=== PATIENT | female | born 1985 | race Caucasian/White ===

== ENCOUNTER 2016-07-15 12:21 | Outpatient (CLI) | payer OTHER ==
--- NOTE | 2016-07-15 13:50 | Non Stress Test Report ---
Non Stress Test Datetime Report Generated by CPN: 07/15/2016 13:50 DEMOGRAPHIC Test Number: 1 EGA NST: 39.1 INDICATION Indication for Study: Decreased Movement MONITORING Monitor Explained: Monitor Explained; Test Explained; Patient Verbalized Understanding Time on Monitor: 07/15/2016 12:54 Time off Monitor: 07/15/2016 13:40 NST Duration: 46 NST INTERVENTIONS NST Interventions: PO Hydration Physician Notified NST: Dr. Chen BABY A: [id number] BABY A Movement : Present Contraction Frequency : 3-8 FHR Baseline : 140 Accelerations : 15X15 Decelerations : None Variability : Moderate 6-25bpm NST Review: Meets Criteria for Reactive NST NST Review and Verified By : Iris Stokes RNC NST Results: Reactive NST REPORT Report Trigger: Send Report
[2016-07-15 13:55] LABS: APPEARANCE,URINE CLOUDY; BILIRUBIN,URINE NEGATIVE (NEGATIVE); GLUCOSE, URINE NEGATIVE (NEGATIVE); KETONES,URINE NEGATIVE (NEGATIVE); LEUKOCYTE ESTERASE,URINE LARGE (NEGATIVE); NITRITE,URINE NEGATIVE (NEGATIVE); PROTEIN,URINE NEGATIVE (NEGATIVE); URINE SPECIFIC GRAVITY 1.009; UROBILINOGEN,URINE NEGATIVE mg/dL (<2.0)
[2016-07-15 14:10] LABS: URINE BARBITURATES SCREEN NEGATIVE; URINE METHADONE SCREEN NEGATIVE; URINE OPIATES LOW NEGATIVE; URINE PHENCYCLIDINE SCREEN NEGATIVE
== END 2016-07-15 13:48 | disposition home or self-care (01) ==
LOC: LC 12:21
PROVIDERS: ATTEND Obstetrics & Gynecology
PROC: 4A1HXCZ Monitoring of Products of Conception, Cardiac Rate, External Approach (ICD-10-PCS; principal; 2016-07-15)
DX: O36.8130 Decreased fetal movements, third trimester, not applicable or unspecified (principal); Z3A.39 39 weeks gestation of pregnancy
CPT/HCPCS: 59025; 80307; 81005

== ENCOUNTER 2016-07-23 11:59 | Outpatient (CLI) | payer OTHER | END 2016-07-23 13:12 | disposition home or self-care (01) | LOC: LC 11:59 | PROVIDERS: ATTEND Obstetrics & Gynecology | PROC: 4A1HXCZ Monitoring of Products of Conception, Cardiac Rate, External Approach (ICD-10-PCS; principal; 2016-07-23) | DX: O48.0 Post-term pregnancy (principal); Z3A.40 40 weeks gestation of pregnancy | CPT/HCPCS: 59025 ==

== ENCOUNTER 2016-07-27 05:32 | Inpatient (IN) | payer OTHER ==
--- NOTE | 2016-07-27 05:34 | Non Stress Test Report ---
Non Stress Test Datetime Report Generated by CPN: 07/27/2016 05:33 DEMOGRAPHIC Test Number: 2 EGA NST: 40.2 INDICATION Indication for Study: Ordered by Provider MONITORING Monitor Explained: Monitor Explained; Test Explained; Patient Verbalized Understanding Time on Monitor: 07/23/2016 12:07 Time off Monitor: 07/23/2016 13:07 NST Duration: 60 NST INTERVENTIONS NST Interventions: Reposition Patient Physician Notified NST: C. Montgomery, CNM BABY A: [id number] BABY A Movement : Present Contraction Frequency : Irregular FHR Baseline : 155 Accelerations : 15X15 Decelerations : None Variability : Moderate 6-25bpm NST Review: Meets Criteria for Reactive NST NST Review and Verified By : COURTNEY JAMES RN NSVinayak Results: Reactive NST REPORT Report Trigger: Send Report
[2016-07-27] MEDS ORDERED: RINGERS SOLUTION,LACTATED 1,000 ML IV PRN (06:20)
[2016-07-27 06:43] LABS: APPEARANCE,URINE SLIGHTLY-CLOUDY; BILIRUBIN,URINE NEGATIVE (NEGATIVE); GLUCOSE, URINE NEGATIVE (NEGATIVE); KETONES,URINE NEGATIVE (NEGATIVE); LEUKOCYTE ESTERASE,URINE MODERATE (NEGATIVE); NITRITE,URINE NEGATIVE (NEGATIVE); PROTEIN,URINE NEGATIVE (NEGATIVE); URINE SPECIFIC GRAVITY 1.006; UROBILINOGEN,URINE NEGATIVE mg/dL (<2.0)
[2016-07-27] MEDS ORDERED: MISOPROSTOL 0.2 MG TABLET ONE ×2 (06:58→12:07)
[2016-07-27] MEDS ORDERED: OXYTOCIN/NORMAL SALINE 20 UNIT/1,000 ML RTUINJ ONE (06:58)
[2016-07-27] MEDS ORDERED: LIDOCAINE 1% INJ-PF (10 MG/ML) 30 ML SDV ONE (06:58)
[2016-07-27 06:59] LABS: URINE BARBITURATES SCREEN NEGATIVE; URINE METHADONE SCREEN NEGATIVE; URINE OPIATES LOW NEGATIVE; URINE PHENCYCLIDINE SCREEN NEGATIVE
[2016-07-27] MEDS ORDERED: RINGERS SOLUTION,LACTATED 500 ML IV ONE (07:00)
[2016-07-27 07:12] LABS: ABSOLUTE LYMPHOCYTES (AUTO) 1.8 10^3/uL (0.5-4.7); ABSOLUTE MONOCYTES (AUTO) 0.7 10^3/uL (0.1-1.4); ABSOLUTE NEUT (AUTO) 8.7 10^3/uL (1.7-8.2); BASOPHILS % (AUTO) 0.2 % (0-2); HEMATOCRIT 30.1 % (36.0-47.0); HEMOGLOBIN 9.6 g/dL (12.0-15.5); HGB HCT DIFFERENCE -1.3; MEAN CORPUSCULAR HEMOGLOBIN 22.6 pg (27.0-33.4); MEAN CORPUSCULAR HGB CONC 31.9 g/dL (32.0-36.0); MEAN CORPUSCULAR VOLUME 71 fl (80-97); MONOCYTES % (AUTO) 5.9 % (3-13); RED BLOOD COUNT 4.24 10^6/uL (3.72-5.28); RED CELL DISTRIBUTION WIDTH 16.7 % (11.5-14.0); SEGMENTED NEUTROPHILS % (AUTO) 77.9 % (42-78); WHITE BLOOD COUNT 11.2 10^3/uL (4.0-10.5)
[2016-07-27] MEDS ORDERED: EPHEDRINE SULFATE INJ 50 MG/1 ML AMPULE ONE (07:22)
[2016-07-27] MEDS ORDERED: FENTANYL/BUPIVACAINE/NS/PF 200 MCG/100 ML RTUINJ EPI ONE (07:22)
[2016-07-27] MEDS ORDERED: BUPIVACAINE HCL 0.25 % INJ/PF (2.5 MG/1 ML) 30 ML VIAL ONE (07:22)
--- NOTE | 2016-07-27 08:01 | L&D Flow Sheet ---
LD Flowsheet Datetime Report Generated by CPN: 07/27/2016 08:00 Datetime: 07/27/2016 07:52 NBP Sys/Pauline/Mean (mmHg): 121 (QS system process) : 72 (QS system process) : 91 (QS system process) Pulse: 83 (QS system process) LaborFlag: Labor (QS system process) Datetime: 07/27/2016 07:50 NBP Sys/Pauline/Mean (mmHg): 118 (QS system process) : 75 (QS system process) : 74 (QS system process) : 91 (QS system process) : 90 (QS system process) Pulse: 93 (QS system process) Pulse: 81 (QS system process) LaborFlag: Labor (QS system process) Datetime: 07/27/2016 07:49 Dilatation (cm): 9.0 (Anjelica Davalos RN) Effacement (%): 100 (Anjelica Davalos RN) Exam by: Cecille Turner RN (Anjelica Davalos RN) Membrane Status: Bulging (Anjelica Davalos RN) Datetime: 07/27/2016 07:48 NBP Sys/Pauline/Mean (mmHg): 116 (QS system process) NBP Sys/Pauline/Mean (mmHg): 117 (QS system process) : 73 (QS system process) : 89 (QS system process) : 91 (QS system process) Pulse: 88 (QS system process) I/O Interventions: [place] Cath Inserted (Anjelica Davalos RN) Patient Care Comments: Clear urine draining (Anjelica Davalos RN) LaborFlag: Labor (QS system process) Datetime: 07/27/2016 07:47 NBP Sys/Pauline/Mean (mmHg): 122 (QS system process) : 71 (QS system process) : 93 (QS system process) Pulse: 83 (QS system process) Monitor Interventions for UA: [place] Adjusted (Anjelica Vitrano RN) Anesthesia Plans: Epidural (Anjelica Vitrano RN) Epidural Procedure Other: Pump Started (Anjelica Vitrano RN) LaborFlag: Labor (QS system process) Datetime: 07/27/2016 07:46 NBP Sys/Pauline/Mean (mmHg): 121 (QS system process) : 73 (QS system process) : 92 (QS system process) Pulse: 83 (QS system process) LaborFlag: Labor (QS system process) Datetime: 07/27/2016 07:45 NBP Sys/Pauline/Mean (mmHg): 127 (QS system process) : 77 (QS system process) : 97 (QS system process) Pulse: 85 (QS system process) Anesthesia Level Check: T10- Umbilicus (Anjelica Vitrano, RN) LaborFlag: Labor (QS system process) Datetime: 07/27/2016 07:44 Patient Position/Activity: Right Tilt; Low Fowlers (Anjelica Vitrano, RN) Datetime: 07/27/2016 07:42 NBP Sys/Pauline/Mean (mmHg): 138 (QS system process) : 89 (QS system process) : 109 (QS system process) Pulse: 82 (QS system process) LaborFlag: Labor (QS system process) Datetime: 07/27/2016 07:41 NBP Sys/Pauline/Mean (mmHg): 138 (QS system process) : 90 (QS system process) : 109 (QS system process) Pulse: 93 (QS system process) Anesthesia Plans: Epidural (Anjelica Vitrano, RN) Epidural Procedure: Loading Dose (Anjelica Vitrano, RN) LaborFlag: Labor (QS system process) Datetime: 07/27/2016 07:40 NBP Sys/Pauline/Mean (mmHg): 137 (QS system process) : 90 (QS system process) : 109 (QS system process) Pulse: 96 (QS system process) Anesthesia Plans: Epidural (Anjelica Vitrano, RN) Epidural Procedure: Cath Placed (Anjelica Vitrano, RN) Epidural Procedure: Test Dose (Anjelica Vitrano, RN) LaborFlag: Labor (QS system process) Datetime: 07/27/2016 07:31 Comments: Broken tracing d/t pt position for epidural; RN remains at bedside continuously adjusting US throughout procedure (Anjelica Vitrano, RN) Datetime: 07/27/2016 07:28 Procedure Verify: Correct Patient Identity; Correct Side and Site are Marked; Accurate Procedure Consent Form; Agreement on Procedure to be Done; Correct Patient Position; Relevant Images and Results are Properly Labeled and Displayed; Addressed Need to Administer Antibiotics or Fluids for Irrigation; Safety Precautions Based on Patient History or Medication Use (Anjelica Davalos RN) Anesthesia Plans: Epidural (Anjelica KENYA Davalos) Epidural Positioning: Sitting (Anjelica Davalos RN) Anesthesia Comments: Dr. Ferreira at bedside for epidural (Anjelica Vitrano, RN) Datetime: 07/27/2016 07:26 Dilatation (cm): 8.0 (Anjelica Davalos RN) Exam by: Cecille Turner RN (Anjelica Davalos RN) Membrane Status: Bulging (Anjelica KENYA Davalos) Datetime: 07/27/2016 07:25 Pushing: Urge to Push (Anjelica Anoop, RN) Datetime: 07/27/2016 07:14 Stage of : Labor (Diana Santos RN) Strip Reviewed by: Rakan Santos RN (Diana Santos RN) Communication: Report Given to @ Cecille Turner RN (Diana Santos RN) Notification Reason: Status Update; Status; Labor Status; Membrane Status; Uterine Activity; Pain; Lab/Diagnostic Study (Diana Santos RN) Datetime: 07/27/2016 07:13 Dilatation (cm): 7.5 (Diana Tom, RN) Effacement (%): 100 (Diana Jonesergrass, RN) Station: -1 (Diana Santos, RN) Exam by: Kalpesh Turner (Diana Santos, RN) Vaginal Exam Comments: bulging forebag noted, (Diana Santos, RN) Patient Care Comments: c/o increasing pressure (Diana Santos, RN) Datetime: 07/27/2016 07:07 Monitor Mode: External; Palpation (Crystal Tom, RN) Frequency (min): 4-6 (Crystal Tom, RN) Quality: Moderate to Strong (Crystal [place], RN) Duration (sec): 90-110 (Crystal [place], RN) Duration Criteria: Less than Two 120 Second Contractions (Crystal [place], RN) Resting Tone (Palpate): Relaxed (Crystal [place], RN) Monitor Mode: External US (Crystal Tom, RN) FHR Baseline Rate : 135 (Crystal [place], RN) Variability: Moderate 6-25 bpm (Crystal [place], RN) Accelerations: 15X15 (Crystal [place], RN) Patient Position/Activity: Left Extreme (Crystal [place], RN) Datetime: 07/27/2016 07:05 Pushing: Urge to Push (Crystal [place], RN) Datetime: 07/27/2016 07:04 NBP Sys/Pauline/Mean (mmHg): 124 (QS system process) : 78 (QS system process) : 96 (QS system process) Pulse: 93 (QS system process) IV/Blood Work: New IV Bag Hung (Crystal Tom, RN) LaborFlag: Labor (QS system process) Datetime: 07/27/2016 07:03 Communication: RN at Bedside (Crystal Tom, RN) Datetime: 07/27/2016 07:00 Procedures: Labs Drawn (Crystal [place], RN) Datetime: 07/27/2016 06:58 Monitor Mode: External; Palpation (Diana Santos, RN) Frequency (min): 5 (Diana [place]er[place], RN) Quality: Moderate to Strong (Crystal Tom, RN) Duration (sec): 90-120 (Crystal [place], RN) Duration Criteria: Less than Two 120 Second Contractions (Crystal [place], RN) Resting Tone (Palpate): Relaxed (Crystal [place], RN) Monitor Mode: External US (Diana Santos, RN) FHR Baseline Rate : 130 (Crystal [place], RN) Variability: Moderate 6-25 bpm (Crystal Tom, RN) Pain Relief Measures: Comfort Measures (Diana Santos, RN) Pain Coping: Requesting Pain Medication or Epidural; Crying (Diana Santos, RN) Patient Position/Activity: Left Lateral (Diana Santos RN) Comfort Measures: Family Support (Diana Santos RN) Patient Care Comments: Pt bolusing for epidural _ awaiting labs to be drawn. (Diana Santos RN) Patient Care Comments: Lab at bedside (Diana Santos RN) LaborFlag: Labor (QS system process) Datetime: 07/27/2016 06:54 Procedures: Consents Signed (Diana Santos RN) Datetime: 07/27/2016 06:50 Stage of : Labor (Diana Santos RN) Monitor Mode: External; Palpation (Diana Santos RN) Frequency (min): 2-4 (Diana Santos RN) Quality: Moderate to Strong (Diana Santos RN) Duration (sec): 70-120 (Diana Santos RN) Duration Criteria: Less than Two 120 Second Contractions (Diana Santos RN) Resting Tone (Palpate): Relaxed (Diana Santos RN) Monitor Mode: External US (Diana Santos RN) FHR Baseline Rate : 130 (Diana Santos RN) Variability: Moderate 6-25 bpm (Diana Santos RN) Patient Position/Activity: Left Lateral (Diana Santos RN) Provider Reviewed Strip: Yes (Diana Santos RN) Strip Reviewed by: Rakan Santos RN (Diana Santos RN) Communication: RN Reviewed Strip; Provider Orders Received (Diana Santos RN) Provider Notified (Name): Dr. Dsouza (Diana Santos RN) Notification Reason: Status Update; Status; Labor Status; Membrane Status; Uterine Activity; Pain (Diana Santos RN) Datetime: 07/27/2016 06:44 Dilatation (cm): 7.0 (Diana Santos RN) Effacement (%): 90 (Diana Santos RN) Station: -1 (Diana Santos RN) Exam by: Rakan Santos RN (Diana Santos RN) Membrane Status: Ruptured (Diana Santos RN) Membranes Ruptured Date/Time: 07/27/2016 06:44 (Diana Santos RN) Membranes Rupture Method: Spontaneous (Diana Santos RN) Amniotic Fluid Color: Clear (Diana Santos RN) Amniotic Fluid Amount: Small (Diana Santos RN) Amniotic Fluid Odor: Normal (Diana Santos RN) Vaginal Bleeding: Normal Show (Diana Santos RN) Cervix, Consistency: Soft (Diana Santos RN) Datetime: 07/27/2016 06:35 Monitor Mode: External; Palpation (Crystal Tom, RN) Frequency (min): 2-3 (Crystal Tom, RN) Quality: Moderate to Strong (Crystal Tom, RN) Duration (sec): 90-120 (Crystal [place], RN) Duration Criteria: Less than Two 120 Second Contractions (Crystal [place], RN) Resting Tone (Palpate): Relaxed (Crystal [place], RN) Monitor Mode: External US (Crystal Tom, RN) FHR Baseline Rate : 145 (Crystal [place], RN) Variability: Moderate 6-25 bpm (Crystal [place], RN) Accelerations: 15X15 (Crystal Tom, RN) Patient Position/Activity: Right Lateral (Crystal Tom, RN) Datetime: 07/27/2016 06:27 Dilatation (cm): 5.0 (Crystal Tom, RN) Effacement (%): 90 (Crystal [place], RN) Station: -2 (Crystal [place], RN) Exam by: Rakan Santos RN (Crystal [place], RN) Vaginal Bleeding: None (Crystal [place], RN) Cervix, Position: Midposition (Diana Santos RN) Datetime: 07/27/2016 06:26 IV/Blood Work: IV Started; IV Bolus Started; New IV Bag Hung (Diana Santos RN) Patient Care Comments: 18 G L FA (Diana Santos RN) Datetime: 07/27/2016 06:17 Stage of : OB Triage (Diana Santos RN) Strip Reviewed by: Rakan Santos RN (Diana Santos RN) Communication: RN Reviewed Strip; Provider Orders Received (Diana Santos RN) Provider Notified (Name): Lianna (Diana Santos RN) Notification Reason: Status Update; Status; Labor Status; Uterine Activity; Pain (Diana Santos RN) Communication Comments: Dr. Dsouza notified of VE and pt pain status, received orders to continue to observe pt as a labor check at this time. (Diana Santos RN) Datetime: 07/27/2016 06:11 Monitor Mode: External; Palpation (Crystal Tom, RN) Frequency (min): 3-4 (Crystal [place], RN) Quality: Moderate to Strong (Crystal Tom, RN) Duration (sec): 60-80 (Crystal Tom, RN) Duration Criteria: Less than Two 120 Second Contractions (Crystal Tom, RN) Resting Tone (Palpate): Relaxed (Crystal Tom, RN) Monitor Mode: External US (Crystal [place], RN) FHR Baseline Rate : 140 (Crystal [place], RN) Variability: Moderate 6-25 bpm (Crystal [place], RN) Accelerations: 15X15 (Crystal [place], RN) Patient Position/Activity: Right Lateral (Crystal Tom, RN) Datetime: 07/27/2016 05:58 Monitor Interventions for FHR: Ultrasound Adjusted (Crystal Tom, RN) Comments: Pt turned more on her side from back. (Crystal Tmo, RN) Datetime: 07/27/2016 05:50 NBP Sys/Pauline/Mean (mmHg): 129 (QS system process) : 83 (QS system process) : 100 (QS system process) Pulse: 78 (QS system process) LaborFlag: Labor (QS system process) Datetime: 07/27/2016 05:49 Monitor Mode: External; Palpation (Crystal [place], RN) Frequency (min): 6 (Crystal [place], RN) Quality: Moderate (Crystal Tom, RN) Duration (sec): 120 (Crystal Tom, RN) Duration Criteria: Less than Two 120 Second Contractions (Crystal Tom, RN) Resting Tone (Palpate): Relaxed (Crystal Tom, RN) Monitor Mode: External US (Crystal [place], RN) FHR Baseline Rate : 135 (Crystal Tom, RN) Variability: Moderate 6-25 bpm (Crystal Tom, RN) Patient Position/Activity: Left Tilt (Crystal [place], RN) Datetime: 07/27/2016 05:37 Monitor Mode: External US (Diana Santos RN) Pain Scale: 4 (Diana Santos RN) Pain Presence: Intermittent (Diana Santos RN) Pain Type: Contraction (Diana Santos RN) Pain Location: Abdomen (Diana Santos RN) Pain Goal: 1 (Diana Santos RN) Pain Relief Measures: Comfort Measures (Diana Santos RN) Pain Coping: Requesting Pain Medication or Epidural; Crying (Diana Santos RN) Dilatation (cm): 5.0 (Diana Santos RN) Effacement (%): 90 (Diana Santos RN) Station: -2 (Diana Santos RN) Membrane Status: Intact (Diana Santos RN) Vaginal Bleeding: None (Diana Santos RN) Dilatation (cm): 5 or greater cms (Diana Santos RN) Effacement: >80_ effaced (Diana Santos RN) Station: minus 2 (Diana Santos RN) Consistency: Soft (Diana Santos RN) Position: Midposition (Diana Sanots RN) Total Solitario's Score: 10 (QS system process) : 9-14 = Usually no failure for induction (QS system process) Level of Consciousness: Fully Conscious (Diana Santos RN) DTR's/Clonus: DTRs 1+; No Clonus (Diana Santos RN) Headache: Denies (Diana Santos RN) Breath Sounds, Left: Clear and Equal (Diana Santos RN) Breath Sounds, Right: Clear and Equal (Diana Santos RN) Nausea/Vomiting: Denies (Diana Santos RN) RUQ Epigastric Pain: Denies (Diana Santos RN) Instructional Method: Verbal; Patient Instructed; Family/Support Person Instructed; Verbalized Understanding (Diana Santos RN) Plan of Care: Plan of Care Discussed (Diana Santos RN) Unit Routine: [place] to Room (Diana Santos RN) Pain Management: Epidural; PRN Medications; Pain Scale/Goals; Comfort Measures (Diana Santos RN) LaborFlag: Labor (QS system process)
[2016-07-27] MEDS ORDERED: OXYTOCIN/NORMAL SALINE 1,000 ML IV PRN ×2 (09:51→11:51)
--- NOTE | 2016-07-27 10:01 | L&D Flow Sheet ---
LD Flowsheet Datetime Report Generated by CPN: 07/27/2016 10:00 Datetime: 07/27/2016 09:52 NBP Sys/Pauline/Mean (mmHg): 144 (QS system process) : 84 (QS system process) : 102 (QS system process) Pulse: 89 (QS system process) LaborFlag: Labor (QS system process) Datetime: 07/27/2016 09:45 Monitor Mode: External; Palpation (Azra Camp, RNC) Frequency (min): 1.5-3 (Azra Camp, RNC) Quality: Mild/Moderate (Azra Camp, RNC) Duration (sec): 40-60 (Azra Camp, RNC) Duration Criteria: Less than Two 120 Second Contractions (Azra Camp, RNC) Pattern: Normal: <= 5 Contractions in 10 Minutes (Azra Camp, RNC) Resting Tone (Palpate): Relaxed (Azra Camp, RNC) Monitor Mode: External US; Auscultation (Azra Camp, RNC) FHR Baseline Rate : 130 (Azra Camp, RNC) FHR Baseline Changes: No Baseline Change (Azra Camp, RNC) Variability: Moderate 6-25 bpm (Azra Camp, RNC) Accelerations: 15X15 (Azra Camp, RNC) Decelerations: None (Azra Camp, RNC) Datetime: 07/27/2016 09:38 NBP Sys/Pauline/Mean (mmHg): 127 (QS system process) : 72 (QS system process) : 95 (QS system process) Pulse: 75 (QS system process) Respirations: 17 (Azra Camp, RNC) LaborFlag: Labor (QS system process) Datetime: 07/27/2016 09:30 Monitor Mode: External; Palpation (Azra Camp, RNC) Frequency (min): 2-3 (Azra Camp, RNC) Quality: Mild/Moderate (Azra Camp, RNC) Duration (sec): 40-70 (Azra Camp, RNC) Pattern: Normal: <= 5 Contractions in 10 Minutes (Azra Camp, RNC) Resting Tone (Palpate): Relaxed (Azra Camp, RNC) Monitor Mode: External US; Auscultation (Azra Camp, RNC) FHR Baseline Rate : 130 (Azra Camp, RNC) FHR Baseline Changes: No Baseline Change (Azra Camp, RNC) Variability: Moderate 6-25 bpm (Azra Camp, RNC) Accelerations: 15X15 (Azra Camp, RNC) Decelerations: Variable (Azra Camp, RNC) Datetime: 07/27/2016 09:26 Monitor Mode: Palpation (Azra Camp, RNC) Monitor Interventions for UA: [place] Adjusted (Azra Camp, RNC) Quality: Mild/Moderate (Azra Camp, RNC) Resting Tone (Palpate): Relaxed (Azra Camp, RNC) Datetime: 07/27/2016 09:23 NBP Sys/Pauline/Mean (mmHg): 128 (QS system process) : 61 (QS system process) : 88 (QS system process) Pulse: 85 (QS system process) Respirations: 16 (Azra Camp, RNC) LaborFlag: Labor (QS system process) Datetime: 07/27/2016 09:20 Patient Position/Activity: Peanut Ball; Right Extreme (Azra Camp, RNC) Communication: RN at Bedside; RN Reviewed Strip (Azra Camp, RNC) Datetime: 07/27/2016 09:15 Monitor Mode: External; Palpation (Azra Camp, RNC) Frequency (min): 3-4 (Azra Camp, RNC) Quality: Mild/Moderate (Azra Camp, RNC) Duration (sec): 50-60 (Azra Camp, RNC) Duration Criteria: Less than Two 120 Second Contractions (Azra Camp, RNC) Pattern: Normal: <= 5 Contractions in 10 Minutes (Azra Camp, RNC) Resting Tone (Palpate): Relaxed (Azra Camp, RNC) Monitor Mode: External US; Auscultation (Azra Camp, RNC) FHR Baseline Rate : 130 (Azra Camp, RNC) FHR Baseline Changes: No Baseline Change (Azra Camp, RNC) Variability: Minimal - Undetectable to <=5 bpm (Azra Camp, RNC) Decelerations: Early (Azra Camp, RNC) Datetime: 07/27/2016 09:07 NBP Sys/Pauline/Mean (mmHg): 117 (QS system process) : 60 (QS system process) : 81 (QS system process) Pulse: 71 (QS system process) Respirations: 17 (Azra Camp, RNC) LaborFlag: Labor (QS system process) Datetime: 07/27/2016 09:00 Monitor Mode: External; Palpation (Azra Camp, RNC) Frequency (min): 1-3 (Azra Camp, RNC) Quality: Mild/Moderate (Azra Camp, RNC) Duration (sec): 60-110 (Azra Camp, RNC) Duration Criteria: Less than Two 120 Second Contractions (Azra Camp, RNC) Pattern: Normal: <= 5 Contractions in 10 Minutes (Azra Camp, RNC) Resting Tone (Palpate): Relaxed (Azra Camp, RNC) Monitor Mode: External US; Auscultation (Azra Camp, RNC) FHR Baseline Rate : 135 (Azra Camp, RNC) FHR Baseline Changes: No Baseline Change (Azra Camp, RNC) Variability: Minimal - Undetectable to <=5 bpm (Azra Camp, RNC) Accelerations: None (Azra Camp, RNC) Decelerations: None (Azra Camp, RNC) Pain Scale: 1 (Azra Camp, RNC) Pain Presence: Intermittent (Azra Camp, RNC) Pain Type: Pressure (Azra Camp, RNC) Pain Location: Perineum (Azra Camp, RNC) Pain Relief Measures: Epidural Given (Azra Camp, RNC) LaborFlag: Labor (QS system process) Datetime: 07/27/2016 08:54 NBP Sys/Pauline/Mean (mmHg): 119 (QS system process) : 58 (QS system process) : 81 (QS system process) Pulse: 69 (QS system process) Respirations: 16 (Azra Camp, RNC) LaborFlag: Labor (QS system process) Datetime: 07/27/2016 08:45 Monitor Mode: External; Palpation (Azra Camp, RNC) Monitor Interventions for UA: [place] Adjusted (Azra Camp, RNC) Frequency (min): 3-4 (Azra Camp, RNC) Quality: Moderate (Azra Camp, RNC) Duration (sec): 50-70 (Azra Camp, RNC) Pattern: Normal: <= 5 Contractions in 10 Minutes (Azra Camp, RNC) Resting Tone (Palpate): Relaxed (Azra Camp, RNC) Monitor Mode: External US; Auscultation (Azra Camp, RNC) FHR Baseline Rate : 135 (Azra Camp, RNC) FHR Baseline Changes: No Baseline Change (Azra Camp, RNC) Variability: Minimal - Undetectable to <=5 bpm (Azra Camp, RNC) Datetime: 07/27/2016 08:39 NBP Sys/Pauline/Mean (mmHg): 107 (QS system process) : 53 (QS system process) : 76 (QS system process) Pulse: 71 (QS system process) Respirations: 16 (Azra Camp, RNC) LaborFlag: Labor (QS system process) Datetime: 07/27/2016 08:35 Monitor Interventions for UA: [place] Adjusted (Rosa Thompsoner, RN) Monitor Interventions for FHR: Ultrasound Adjusted (Rosa Palafox, RN) Patient Position/Activity: Left Lateral; Peanut Ball (Rosa Thompsoner, RN) Datetime: 07/27/2016 08:30 Monitor Mode: External; Palpation (Azra Camp, RNC) Frequency (min): 2-3 (Azra Camp, RNC) Quality: Mild/Moderate (Azra Camp, RNC) Duration (sec): 50-70 (Azra Camp, RNC) Pattern: Normal: <= 5 Contractions in 10 Minutes (Azra Camp, RNC) Resting Tone (Palpate): Relaxed (Azra Camp, RNC) Monitor Mode: External US; Auscultation (Azra Camp, RNC) FHR Baseline Rate : 135 (Azra Camp, RNC) FHR Baseline Changes: No Baseline Change (Azra Camp, RNC) Variability: Moderate 6-25 bpm (Azra Camp, RNC) Decelerations: Variable (Azra Camp, RNC) Datetime: 07/27/2016 08:23 NBP Sys/Pauline/Mean (mmHg): 127 (QS system process) : 82 (QS system process) : 99 (QS system process) Pulse: 92 (QS system process) Respirations: 16 (Azra Camp, RNC) LaborFlag: Labor (QS system process) Datetime: 07/27/2016 08:15 Monitor Mode: External; Palpation (Azra Camp, RNC) Frequency (min): 3-4 (Azra Camp, RNC) Quality: Mild/Moderate (Azra Camp, RNC) Duration (sec): 60-70 (Azra Camp, RNC) Duration Criteria: Less than Two 120 Second Contractions (Azra Camp, RNC) Pattern: Normal: <= 5 Contractions in 10 Minutes (Azra Camp, RNC) Resting Tone (Palpate): Relaxed (Azra Camp, RNC) Monitor Mode: External US; Auscultation (Azra Camp, RNC) FHR Baseline Rate : 135 (Azra Camp, RNC) FHR Baseline Changes: No Baseline Change (Azra Camp, RNC) Variability: Moderate 6-25 bpm (Azra Camp, RNC) Decelerations: Variable (Azra Camp, RNC) Datetime: 07/27/2016 08:08 NBP Sys/Pauline/Mean (mmHg): 122 (QS system process) : 78 (QS system process) : 96 (QS system process) Pulse: 90 (QS system process) Respirations: 17 (Azra Camp, C) LaborFlag: Labor (QS system process) Datetime: 07/27/2016 08:07 NBP Sys/Pauline/Mean (mmHg): 127 (QS system process) : 83 (QS system process) : 101 (QS system process) Pulse: 80 (QS system process) Temperature (F): 97.5 (Azra Climax, [facility]) Temperature (C): 36.4 (QS system process) Temperature Route: Oral (Azra Climax, C) LaborFlag: Labor (QS system process) Datetime: 07/27/2016 08:05 Monitor Interventions for UA: [place] Adjusted (Azra Camp, RNC) Datetime: 07/27/2016 08:00 Monitor Mode: External; Palpation (Azra Camp, RNC) Frequency (min): 3-4 (Azra Camp, RNC) Quality: Mild/Moderate (Azra Camp, RNC) Duration (sec): 50-70 (Azra Camp, RNC) Duration Criteria: Less than Two 120 Second Contractions (Azra Camp, RNC) Pattern: Normal: <= 5 Contractions in 10 Minutes (Azra Camp, RNC) Resting Tone (Palpate): Relaxed (Azra Camp, RNC) Monitor Mode: External US; Auscultation (Azra Camp, RNC) FHR Baseline Rate : 135 (Azra Camp, RNC) FHR Baseline Changes: No Baseline Change (Azra Camp, RNC) Variability: Moderate 6-25 bpm (Azra Camp, RNC) Accelerations: 15X15 (Azra Camp, RNC) Decelerations: Variable (Azra Camp, RNC) Comments: Repositioned to right lateral with peanut ball. [place] and u/s adjusted (Azra Camp, RNC) Level of Consciousness: Fully Conscious (Azra Camp, RNC) DTR's/Clonus: DTRs 2+; No Clonus (Azra Camp, RNC) Headache: Denies (Azra Camp, RNC) Breath Sounds, Left: Clear and Equal (Azra Camp, RNC) Breath Sounds, Right: Clear and Equal (PRAVIN Grullon) Nausea/Vomiting: Denies (PRAVNI Grullon) RUQ Epigastric Pain: Denies (PRAVIN Grullon)
[2016-07-27] MEDS ORDERED: ZOLPIDEM TARTRATE 5 MG TABLET PO PRN (11:51)
[2016-07-27] MEDS ORDERED: DIBUCAINE 1% OINTMENT 28 GM TP PRN (11:51)
[2016-07-27] MEDS ORDERED: DIPH/PERTUSS(ACELL)/TETANUS VAC/PF 0.5 ML SYR (>=10YO) IM PRN (11:51)
[2016-07-27] MEDS ORDERED: MISOPROSTOL 0.2 MG TABLET PR PRN (11:51)
[2016-07-27] MEDS ORDERED: MEASLES,MUMPS&RUBELLA VACC/PF 0.5 ML VIAL SUBCUT PRN (11:51)
[2016-07-27] MEDS ORDERED: ACETAMINOPHEN WITH CODEINE #3 TABLET PO PRN ×2 (11:51)
[2016-07-27] MEDS ORDERED: BENZOCAINE/MENTHOL AEROSOL SPRAY 56 ML TOP PRN (11:51)
--- NOTE | 2016-07-27 12:01 | L&D Flow Sheet ---
LD Flowsheet Datetime Report Generated by CPN: 07/27/2016 12:00 Datetime: 07/27/2016 11:52 NBP Sys/Pauline/Mean (mmHg): 104 (QS system process) : 65 (QS system process) : 78 (QS system process) Pulse: 100 (QS system process) Datetime: 07/27/2016 11:37 NBP Sys/Pauline/Mean (mmHg): 122 (QS system process) : 57 (QS system process) : 82 (QS system process) Pulse: 111 (QS system process) Datetime: 07/27/2016 11:36 Stage of : Recovery ([facility] [place], R[facility]) Datetime: 07/27/2016 11:31 Stage 2 Comments: Delivery liveborn female, placed on maternal abdomen cord clamped and cut by fob . dried and stimulated with spontaneous lusty cry noted. Placed skin to skin on maternal chest ([facility], R[facility]) Datetime: 07/27/2016 11:30 Pushing Position: Pushing with Contractions ([facility], R[facility]) Pushing Progress: Descent with Pushing; with Pushing ([facility], [facility]) Datetime: 07/27/2016 11:27 Pushing: Involuntary Pushing ([facility], R[facility]) Datetime: 07/27/2016 11:24 Actions for Decelerations: Pitocin Off; Sterile Vaginal Exam; Provider Reviewed Strip ([facility], R[facility]) Pitocin (milliunit): Pitocin Discontinued ([facility], R[facility]) Patient Position/Activity: HOB Lowered; Right Tilt ([facility], R[facility]) Datetime: 07/27/2016 11:22 NBP Sys/Pauline/Mean (mmHg): 124 (QS system process) : 85 (QS system process) : 98 (QS system process) Pulse: 93 (QS system process) Respirations: 20 ([facility], R[facility]) LaborFlag: Labor (QS system process) Datetime: 07/27/2016 11:16 I/O Interventions: [place]iv[place] Discontinued ([facility], R[facility]) Pushing: Coached on Pushing ([facility], R[facility]) Pushing Position: Pushing with Contractions ([facility], R[facility]) Preparation for Delivery: Setup for Delivery ([facility], R[facility]) Stage 2 Comments: RN and H Sajan CNM to remain at bedside throughout second stage continuously monitoring fhr while pt pushes with contractions ([facility], R[facility]) Datetime: 07/27/2016 11:10 Dilatation (cm): 10.0 ([facility], R[facility]) Effacement (%): 100 ([facility], R[facility]) Station: 2 ([facility] [place], RNC) Exam by: Issa Moeller ([facility] [place], RNC) Communication: RN at Bedside; Provider at Bedside ([facility], R[facility]) Datetime: 07/27/2016 11:07 NBP Sys/Pauline/Mean (mmHg): 118 (QS system process) : 69 (QS system process) : 87 (QS system process) Pulse: 79 (QS system process) Respirations: 18 ([facility] [place], RNC) Temperature (F): 98.1 ([facility] [place], RNC) Temperature (C): 36.7 (QS system process) LaborFlag: Labor (QS system process) Datetime: 07/27/2016 10:52 NBP Sys/Pauline/Mean (mmHg): 104 (QS system process) : 65 (QS system process) : 81 (QS system process) Pulse: 86 (QS system process) Respirations: 17 ([facility] [place], R[facility]) LaborFlag: Labor (QS system process) Datetime: 07/27/2016 10:45 Monitor Mode: External; Palpation ([facility], R[facility]) Frequency (min): 1.5-3 ([facility], R[facility]) Quality: Moderate ([facility], R[facility]) Duration (sec): 40-70 ([facility], R[facility]) Duration Criteria: Less than Two 120 Second Contractions ([facility], [facility]) Pattern: Normal: <= 5 Contractions in 10 Minutes ([facility], [facility]) Resting Tone (Palpate): Relaxed ([facility], [facility]) Monitor Mode: External US; Auscultation ([facility], [facility]) FHR Baseline Rate : 135 ([facility], R[facility]) FHR Baseline Changes: No Baseline Change ([facility], [facility]) Variability: Moderate 6-25 bpm ([facility], R[facility]) Decelerations: Early ([facility], [facility]) Pitocin (milliunit): Pitocin Remains (milliunits) @ 4 ([facility], [facility]) Datetime: 07/27/2016 10:41 Pain Scale: 0 ([facility], [facility]) Pain Presence: None/Denies ([facility], [facility]) Pain Type: N/A ([facility], [facility]) Pain Relief Measures: Epidural Given ([facility], [facility]) Pain Coping: Sleeping ([facility], [facility]) Anesthesia Level Check: T10- Umbilicus ([facility], [facility]) LaborFlag: Labor (QS system process) Datetime: 07/27/2016 10:38 NBP Sys/Pauline/Mean (mmHg): 107 (QS system process) : 61 (QS system process) : 79 (QS system process) Pulse: 65 (QS system process) Respirations: 16 ([facility], R[facility]) LaborFlag: Labor (QS system process) Datetime: 07/27/2016 10:32 Monitor Interventions for UA: [place] Adjusted ([facility], R[facility]) Monitor Interventions for FHR: Ultrasound Adjusted ([facility], [facility]) Patient Position/Activity: Left Lateral; Peanut Ball ([facility], [facility]) Datetime: 07/27/2016 10:30 Monitor Mode: External; Palpation ([facility], [facility]) Frequency (min): 1-3 ([facility], [facility]) Quality: Moderate ([facility], R[facility]) Duration (sec): 50-60 ([facility], R[facility]) Pattern: Normal: <= 5 Contractions in 10 Minutes ([facility], [facility]) Resting Tone (Palpate): Relaxed ([facility], [facility]) Monitor Mode: External US; Auscultation ([facility], [facility]) FHR Baseline Rate : 135 ([facility], [facility]) FHR Baseline Changes: No Baseline Change ([facility], [facility]) Variability: Moderate 6-25 bpm ([facility], [facility]) Decelerations: Early; Variable ([facility] [place], [facility]) Pitocin (milliunit): Pitocin Increased to (milliunits) @ (Annotations: 4) ([facility], [facility]) Datetime: 07/27/2016 10:23 NBP Sys/Pauline/Mean (mmHg): 131 (QS system process) : 84 (QS system process) : 102 (QS system process) Pulse: 81 (QS system process) Respirations: 17 ([facility], R[facility]) LaborFlag: Labor (QS system process) Datetime: 07/27/2016 10:15 Monitor Mode: External; Palpation ([facility] [place], [facility]) Frequency (min): 1-3 ([facility], [facility]) Quality: Moderate ([facility], [facility]) Duration (sec): 50-60 ([facility], [facility]) Pattern: Normal: <= 5 Contractions in 10 Minutes ([facility], [facility]) Resting Tone (Palpate): Relaxed ([facility], [facility]) Monitor Mode: External US; Auscultation ([facility], [facility]) FHR Baseline Rate : 135 ([facility], [facility]) FHR Baseline Changes: No Baseline Change ([facility] [place], [facility]) Variability: Moderate 6-25 bpm ([facility] [place], [facility]) Decelerations: Early; Variable ([facility] [place], [facility]) Pitocin (milliunit): Pitocin Increased to (milliunits) @ ([facility] [place], [facility]) Pitocin (milliunit): Pitocin Remains (milliunits) @ (Annotations: 2) ([facility] [place], R[facility]) Datetime: 07/27/2016 10:07 NBP Sys/Pauline/Mean (mmHg): 146 (QS system process) : 71 (QS system process) : 99 (QS system process) Pulse: 85 (QS system process) Respirations: 16 ([facility] [place], [facility]) Monitor Interventions for UA: [place] Adjusted ([facility], [facility]) LaborFlag: Labor (QS system process) Datetime: 07/27/2016 10:00 Monitor Mode: External; Palpation ([facility] [place], R[facility]) Monitor Interventions for UA: [place] Adjusted ([facility], R[facility]) Frequency (min): 2-5 ([facility] [place], [facility]) Quality: Mild/Moderate ([facility] [place], [facility]) Duration (sec): 40-70 ([facility], [facility]) Duration Criteria: Less than Two 120 Second Contractions ([facility], [facility]) Pattern: Normal: <= 5 Contractions in 10 Minutes ([facility], [facility]) Resting Tone (Palpate): Relaxed ([facility], [facility])
[2016-07-27] MEDS ORDERED: IBUPROFEN 800 MG TABLET ONE (12:07)
[2016-07-27] MEDS: IBUPROFEN 800 MG TABLET PO SCH ×2 (13:57→21:51)
--- NOTE | 2016-07-27 14:02 | Delivery Summary ---
Del Sum A-C Datetime Report Generated by CPN: 07/27/2016 14:02 ADMISSION DATA Chief Complaint: Uterine Contractions; Suspected Ruptured Membranes Indication for Induction: Not Applicable Admission Impression: Term, Intrauterine ; Active Labor; Ruptured Membranes Admit Provider Comments: Active labor, admit to L _ D, may have epidural hx abn pap, with hpv efw 9lbs 8oz See record for complete medical/surgical/ob hx. GBS negative Expectant mgmt Anticipate DELIVERY PERSONNEL Delivery Doctor:: Krupa Moeller CNGisel Labor and Delivery Nurse:: PRAVIN Grullon Labor and Delivery Nurse:: Anjelica Davalos RN Student Observers:: Isaias Barraza Physicist [employer] Student Tester [employer]/COAL DUMPING EQUIPMENT OPERATOR: Bria Millard, [employer] REPAIRER Tester [employer]/COAL DUMPING EQUIPMENT OPERATOR: Bria Millard, [employer] REPAIRER MATERNAL INFORMATION Delivery Anesthesia: Epidural Medications After Delivery: Pitocin Bolus-Please Comment; Other-Please Comment Meds After Delivery Comment: cytotec 1000 mcg placed rectally by provider Estimated Blood Loss (ml): 450 Maternal Complications: None Provider Comments: of viable female , head, shoulders, and body delivered without difficulty. Infant vigourous, with spontaneous cry and respirations, to maternal abdomen skin to skin, cord clamped X2, infant cut free by pts after 2 min delay. Spontaneous delivery of placenta via mora mechanism, appears intact, 3 VC. Vagina and perineum inspected, 1st degree vaginal laceration as above repaired as above. Hemostasis acheived with external fundal massage and IV pitocin, some boggyiness of uterus initially, cytotec 1000 mcg per rectum given, with good results, mother and infant in stable condition, routine pp care. LABOR SUMMARY EDC: 07/21/2016 00:00 No. Babies in Womb: 1 Attempted: No Labor Anesthesia: Epidural LABOR INFORMATION Reason for Induction: Not Applicable Onset of Labor: 07/27/2016 04:00 Complete Dilatation: 07/27/2016 11:10 Oxytocin: Augmentation Group B Beta Strep: negative Steroids Given: None Reason Steroids Not Administered: Not Applicable MEMBRANES Membranes Rupture Method: Artificial Rupture of Membranes: 07/27/2016 06:44 Length of Rupture (hr): 4.78 Amniotic Fluid Color: Clear Amniotic Fluid Amount: Small Amniotic Fluid Odor: Normal STAGES OF LABOR Stage 1 hr: 7 Stage 1 min: 10 Stage 2 hr: 0 Stage 2 min: 21 Stage 3 hr: 0 Stage 3 min: 4 Total Time in Labor hr: 7 Total Time in Labor min: 35 VAGINAL DELIVERY Episiotomy: None Laceration Extension: First Degree Laceration Type: Vaginal Laceration Repair: Yes Laceration Repair Note: Repired with 2, 2-0 chromic using epidural for anesthesia in usual fashion Sponge Count Correct: N/A Sharps Count Correct: N/A CSECTION DELIVERY Primary Indication: N/A Secondary Indication: N/A CSection Incidence: N/A Labor: N/A Elective: N/A CSection Incision: N/A BABY A INFORMATION Infant Delivery Date/Time: 07/27/2016 11:31 Method of Delivery: Vaginal Born in Route : No : N/A Forceps: N/A Vacuum Extraction: N/A Shoulder Dystocia : No PRESENTATION/POSITION BABY A Presentation: Cephalic Cephalic Presentation: Vertex Vertex Position: Right Occipital Anterior Breech Presentation: N/A PLACENTA INFORMATION BABY A Placenta Delivery Time : 07/27/2016 11:35 Placenta Method of Delivery: Spontaneous Placenta Status: Delivered SCORES BABY A Heart Rate 1 min: >100 bpm Resp Effort 1 min: Good Cry Reflex Irritability 1 min: Cough or Sneeze or Pulls Away Muscle Tone 1 min: Active Motion Color 1 min: Body [place], Extremities Blue Resuscitation Effort 1 min: Tactile Stimulation SCORE 1 MIN: 9 Heart Rate 5 min: >100 bpm Resp Effort 5 min: Good Cry Reflex Irritability 5 min: Cough or Sneeze or Pulls Away Muscle Tone 5 min: Active Motion Color 5 min: Body [place], Extremities Blue Resuscitation Effort 5 min: N/A SCORE 5 MIN: 9 INFORMATION BABY A Gestational Age at Delivery: 40.6 Gestational Status: Full Term- 39- 40.6 Weeks Outcome : Liveborn Condition : Stable Infant Sex: Female IDENTIFICATION BABY A Verification Date/Time: 07/27/2016 11:45 ID Band Number: [id number] Mother's Name Verified: Yes Infant RN Verifying Infant: Kate Davalos, RN Additional Verifying Personnel: BMaya Elias, Dividend Deposit Voucher Clerk WEIGHT/LENGTH BABY A Infant Birthweight (gm): 3670 Infant Weight (lb): 8 Weight (oz): 1 Length (in): 21.00 Infant Length (cm): 53.34 CORD INFORMATION BABY A No. Cord Vessels: 3 Nuchal Cord : N/A Cord Blood Taken: Yes-For Eval (Mom's Blood Type - or O+) Suction: None ASSESSMENT BABY A Infant Complications: None Physical Findings at Delivery: Bruising Physical Findings- Other: facial bruising noted Respirations: Appears Normal Skin to Skin: Yes Skin to Skin Time (min): 45 Cloth Printer Helper/ALS Called : No Infant Care By: Kate Davalos RN Transferred To: Remains with Mother BABY B INFORMATION : N/A SIGNATURES Assignment: Tangela Carballo MD Signature: with User ID: Tri : with User ID: Tri
--- NOTE | 2016-07-27 14:13 | Admission Physical ---
Datetime Report Generated by CPN: 07/27/2016 14:13 CURRENT ADMISSION Hx Assessment: The History has been Reviewed and is Current Chief Complaint: Uterine Contractions; Suspected Ruptured Membranes Indication for Induction: Not Applicable Admit Plan: Admit to Unit; Initiate Labor Protocol ALLERGIES Medication Allergies: Yes Medication Allergies: Sulfa (Sulfonamide Antibiotics)/MO/Generalized marguerite (07/23/2016) Medication Allergies: Sulfa (Sulfonamide Antibiotics)/MO/Generalized marguerite (07/15/2016) Medication Allergies: Sulfa (Sulfonamide Antibiotics) (05/01/2016) Latex: No Latex Allergies Food Allergies: N/A Environmental Allergies: N/A OBSTETRICAL HISTORY EDC: 07/21/2016 00:00 : 4 Para: 1 Para: 1 Term: 0 : 1 SAB: 2 IAB: 0 Ectopic: 0 Livin Cesareans: 0 VBACs: 0 Multiple Births: 0 Gestational Diabetes: No Rh Sensitization: No Incompetent Cervix: No CRYSTAL: No Infertility: No ART Treatment: No Uterine Anomaly: No IUGR: No Hx Previous C/S: No Macrosomia: No Hx Loss/Stillborn: No PIH: No Hx : No Placenta Previa/Abruption: No Depression/PP Depression: No PTL/PROM: Yes Post Hemorrhage: No Current Procedures: Ultrasound; NST Obstetrical History Comments: G1: 2013 baby girl, 27.5 weeks, 2 lb 6 oz G2: 2012 9 weeks SAB G3: 2012 chemical G4: Current; Echogenic foci, left duplicated kidney, P17 and serial CLs SEE RECORDS Alcohol: No Marijuana : No Cocaine: No Other Illicit Drugs: No Cigarettes: Never Smoker. 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 Surgery: No Heart Disease: No Hosp/Surgery: Yes Autoimmune Disorder: No Anesthetic Complications: No Kidney Disease: No Abnormal Pap Smear: Yes Neuro/Epilepsy: No Psychiatric Disorders: No Other Medical Diseases: No Hepatitis/Liver Disease: No Significant Family History: No Varicosities/Phlebitis: No Trauma/Violence : No Thyroid Dysfunction: No Medical History Comments: Surgery: Appendectomy Abnormal Pap: LGSIL with HPV INFECTIOUS HISTORY Gonorrhea: No Genital Herpes: No Chlamydia: No Tuberculosis: No Syphilis: No Hepatitis: No HIV/AIDS Exposure: No Rash or Viral Illness: No HPV: Yes Infectious History Comments: HPV: Colpo 01/10 PHYSICAL EXAM General: Normal HEENT: Normal Neurologic: Normal Thyroid: Deferred Heart: Normal Lungs: Normal Breast: Normal Back: Normal Abdomen: Normal Genitourinary Exam: Normal Extremities: Normal DTRs: Normal Pelvic Type: Adequate Physical Exam Comments: pelvis proved to 2lbs 6oz FETUS A EGA: 40.6 FHR- Baseline: 125 Variability: Moderate 6-25bpm Accelerations: 15X15 Presentation: Vertex Admit Comment: Active labor, admit to L _ D, may have epidural hx abn pap, with hpv efw 9lbs 8oz See record for complete medical/surgical/ob hx. GBS negative Expectant mgmt Anticipate PLANS FOR LABOR AND DELIVERY Labor and Delivery: None Pain Management: None Feeding Preference: Breast Benefit of Breast Feed Discussed: Yes Circumcision: N/A INFORMED CONSENT Assignment: Tangela Carballo MD Signature: with User ID: Tri : with User ID: [email or web address]
[2016-07-27] MEDS: DOCUSATE SODIUM 100 MG CAPSULE PO SCH (17:39)
[2016-07-27] MEDS ORDERED: FERROUS SULFATE 325 MG TABLET PO SCH (18:00)
--- NOTE | 2016-07-27 19:01 | L&D Flow Sheet ---
LD Flowsheet Datetime Report Generated by CPN: 07/27/2016 19:00 Datetime: 07/27/2016 13:53 NBP Sys/Pauline/Mean (mmHg): 130 (QS system process) : 85 (QS system process) : 104 (QS system process) Pulse: 104 (QS system process) Respirations: 17 ([facility], [facility]) Temperature (F): 98.0 ([facility], [facility]) Temperature (C): 36.7 (QS system process) Pain Scale: 2 ([facility], [facility]) Pain Presence: Intermittent ([facility], [facility]) Pain Type: Cramping ([facility], [facility]) Pain Location: Abdomen ([facility], [facility]) Datetime: 07/27/2016 13:52 NBP Sys/Pauline/Mean (mmHg): 140 (QS system process) : 78 (QS system process) : 103 (QS system process) Pulse: 97 (QS system process) Respirations: 17 ([facility], [facility]) Datetime: 07/27/2016 13:22 NBP Sys/Pauline/Mean (mmHg): 129 (QS system process) : 74 (QS system process) : 96 (QS system process) Pulse: 100 (QS system process) Respirations: 17 ([facility], [facility]) Datetime: 07/27/2016 13:07 NBP Sys/Pauline/Mean (mmHg): 141 (QS system process) : 63 (QS system process) : 90 (QS system process) Pulse: 96 (QS system process) Respirations: 16 ([facility], [facility]) Datetime: 07/27/2016 13:00 Pain Scale: 1 ([facility], [facility]) Pain Presence: Intermittent ([facility], [facility]) Pain Type: Cramping ([facility], [facility]) Pain Location: Abdomen ([facility], [facility]) Datetime: 07/27/2016 12:52 NBP Sys/Pauline/Mean (mmHg): 138 (QS system process) : 64 (QS system process) : 88 (QS system process) Pulse: 96 (QS system process) Respirations: 18 ([facility], [facility]) Datetime: 07/27/2016 12:45 Pain Scale: 1 ([facility], [facility]) Pain Presence: Intermittent ([facility], [facility]) Pain Type: Cramping ([facility], [facility]) Pain Location: Abdomen ([facility], [facility]) Pain Assessment Comments: states a decrease in cramping since po Motrin ([facility], [facility]) Datetime: 07/27/2016 12:37 NBP Sys/Pauline/Mean (mmHg): 130 (QS system process) : 61 (QS system process) : 90 (QS system process) Pulse: 103 (QS system process) Respirations: 18 ([facility], [facility]) Pain Scale: 1 ([facility], [facility]) Pain Presence: Intermittent ([facility], [facility]) Pain Type: Cramping ([facility], [facility]) Pain Location: Abdomen ([facility], [facility]) Datetime: 07/27/2016 12:32 NBP Sys/Pauline/Mean (mmHg): 135 (QS system process) : 76 (QS system process) : 98 (QS system process) Pulse: 93 (QS system process) Respirations: 17 ([facility], R[facility]) Datetime: 07/27/2016 12:15 Pain Scale: 1 ([facility], R[facility]) Pain Presence: Intermittent ([facility], [facility]) Pain Type: Cramping ([facility], [facility]) Pain Location: Abdomen ([facility], [facility]) Datetime: 07/27/2016 12:07 NBP Sys/Pauline/Mean (mmHg): 117 (QS system process) : 67 (QS system process) : 85 (QS system process) Pulse: 115 (QS system process) Respirations: 16 ([facility], R[facility]) Pain Scale: 3 ([facility], R[facility]) Pain Presence: Intermittent ([facility], R[facility]) Pain Type: Cramping ([facility], R[facility]) Pain Location: Abdomen ([facility], [facility]) Pain Goal: 2 ([facility], R[facility]) Pain Relief Measures: Pain Medication Given; Comfort Measures ([facility], [facility]) Datetime: 07/27/2016 11:52 NBP Sys/Pauline/Mean (mmHg): 104 (QS system process) : 65 (QS system process) : 78 (QS system process) Pulse: 100 (QS system process) Respirations: 16 ([facility], R[facility]) Datetime: 07/27/2016 11:37 NBP Sys/Pauline/Mean (mmHg): 122 (QS system process) : 57 (QS system process) : 82 (QS system process) Pulse: 111 (QS system process) Respirations: 18 ([facility], R[facility]) Temperature (F): 97.9 ([facility], R[facility]) Temperature (C): 36.6 (QS system process) Temperature Route: Oral ([facility], RNC) Pain Scale: 2 ([facility], R[facility]) Pain Presence: Intermittent ([facility], R[facility]) Pain Type: Cramping ([facility], R[facility]) Pain Location: Abdomen ([facility], R[facility]) Pain Goal: 1 ([facility], R[facility]) Pain Relief Measures: Comfort Measures (Annotations: ice pack applied to perineum) ([facility], R[facility]) Pain Assessment Comments: resting comfortably with no apparent distress noted ([facility] [place], R[facility]) Datetime: 07/27/2016 11:36 Stage of : Recovery ([facility] [place], [facility]) Datetime: 07/27/2016 11:31 Stage 2 Comments: Delivery liveborn female, placed on maternal abdomen cord clamped and cut by fob . dried and stimulated with spontaneous lusty cry noted. Placed skin to skin on maternal chest ([facility], [facility]) Datetime: 07/27/2016 11:30 Monitor Mode: External; Palpation ([place], R[facility]) Frequency (min): 1-2 ([facility] [place], R[facility]) Quality: Moderate ([facility] [place], R[facility]) Duration (sec): 60-90 ([facility] [place], R[facility]) Duration Criteria: Less than Two 120 Second Contractions ([facility] [place], R[facility]) Pattern: Normal: <= 5 Contractions in 10 Minutes ([facility] [place], R[facility]) Resting Tone (Palpate): Relaxed ([facility] [place], R[facility]) FHR Baseline Changes: Bradycardia ([facility] [place], R[facility]) Comments: fhr 95-100 with . Pushing effectively, provider at bedside. Pushing effectively, Robi Davalos RN at bedside for care ([facility] [place], [facility]) Pushing Position: Pushing with Contractions ([facility] [place], [facility]) Pushing Progress: Descent with Pushing; with Pushing ([facility] [place], [facility]) Datetime: 07/27/2016 11:27 Pushing: Involuntary Pushing ([facility] [place], R[facility]) Datetime: 07/27/2016 11:24 Actions for Decelerations: Pitocin Off; Sterile Vaginal Exam; Provider Reviewed Strip ([facility]ra [place], R[facility]) Pitocin (milliunit): Pitocin Discontinued ([facility]ra Turner, RNC) Patient Position/Activity: HOB Lowered; Right Tilt ([facility] Turner, R[facility]) Datetime: 07/27/2016 11:22 NBP Sys/Pauline/Mean (mmHg): 124 (QS system process) : 85 (QS system process) : 98 (QS system process) Pulse: 93 (QS system process) Respirations: 20 ([facility] [place], R[place]) LaborFlag: Labor (QS system process) Datetime: 07/27/2016 11:16 I/O Interventions: Givens Discontinued ([facility]ra Turner, RNC) Pushing: Coached on Pushing ([facility] Turner, R[facility]) Pushing Position: Pushing with Contractions ([facility]ra Johnny, RNC) Preparation for Delivery: Setup for Delivery ([facility] [place], R[facility]) Stage 2 Comments: RN and Issa Sajan CNM to remain at bedside throughout second stage continuously monitoring fhr while pt pushes with contractions ([facility] [place], [facility]) Datetime: 07/27/2016 11:15 Monitor Mode: External; Palpation ([place] [place], [facility]) Frequency (min): 1-2 ([facility] [place], [facility]) Quality: Moderate ([facility] [place], [facility]) Duration (sec): 40-60 ([facility] [place], [facility]) Duration Criteria: Less than Two 120 Second Contractions ([facility] [place], [facility]) Pattern: Normal: <= 5 Contractions in 10 Minutes ([facility] [place], [facility]) Resting Tone (Palpate): Relaxed ([facility] [place], [facility]) Monitor Mode: External US; Auscultation ([facility] [place], R[facility]) FHR Baseline Rate : 140 ([facility] [place], [facility]) FHR Baseline Changes: No Baseline Change ([facility] [place], [facility]) Variability: Moderate 6-25 bpm ([facility] [place], [facility]) Accelerations: 15X15 ([facility] [place], [facility]) Decelerations: Variable ([facility] [place], [facility]) Datetime: 07/27/2016 11:10 Dilatation (cm): 10.0 ([facility] [place], [facility]) Effacement (%): 100 ([facility] [place], [facility]) Station: 2 ([facility], [facility]) Exam by: Issa Moeller ([facility] [place], [facility]) Communication: RN at Bedside; Provider at Bedside ([facility] [place], [facility]) Datetime: 07/27/2016 11:07 NBP Sys/Pauline/Mean (mmHg): 118 (QS system process) : 69 (QS system process) : 87 (QS system process) Pulse: 79 (QS system process) Respirations: 18 ([facility] [place], [place]) Temperature (F): 98.1 ([facility] [place], [place]) Temperature (C): 36.7 (QS system process) LaborFlag: Labor (QS system process) Datetime: 07/27/2016 11:00 Monitor Mode: External; Palpation ([facility] [place], R[facility]) Monitor Interventions for UA: [place] Adjusted ([facility] [place], RNC) Frequency (min): 1-1.5 ([facility] [place], [facility]) Quality: Moderate ([facility] [place], R[place]) Duration (sec): 50-60 ([facility] [place], R[facility]) Duration Criteria: Less than Two 120 Second Contractions ([facility] [place], [facility]) Pattern: Normal: <= 5 Contractions in 10 Minutes ([facility] [place], [facility]) Resting Tone (Palpate): Relaxed ([facility] [place], R[facility]) Monitor Mode: External US; Auscultation ([facility] [place], R[place]) FHR Baseline Rate : 130 ([facility] [place], [facility]) FHR Baseline Changes: No Baseline Change ([facility] [place], [facility]) Variability: Moderate 6-25 bpm ([facility] [place], [facility]) Accelerations: 10X10 ([facility] [place], [facility]) Decelerations: Early ([facility], [facility]) Datetime: 07/27/2016 10:52 NBP Sys/Pauline/Mean (mmHg): 104 (QS system process) : 65 (QS system process) : 81 (QS system process) Pulse: 86 (QS system process) Respirations: 17 ([facility] [place], R[place]) LaborFlag: Labor (QS system process) Datetime: 07/27/2016 10:45 Monitor Mode: External; Palpation ([facility] [place], [place]) Frequency (min): 1.5-3 ([facility] [place], [facility]) Quality: Moderate ([facility] [place], [facility]) Duration (sec): 40-70 ([facility] [place], R[facility]) Duration Criteria: Less than Two 120 Second Contractions ([facility] [place], [place]) Pattern: Normal: <= 5 Contractions in 10 Minutes ([facility] [place], [facility]) Resting Tone (Palpate): Relaxed ([facility] [place], R[facility]) Monitor Mode: External US; Auscultation ([facility] [place], R[place]) FHR Baseline Rate : 135 ([facility] [place], R[place]) FHR Baseline Changes: No Baseline Change ([facility] [place], [facility]) Variability: Moderate 6-25 bpm ([facility] [place], R[facility]) Decelerations: Early ([facility] [place], R[facility]) Pitocin (milliunit): Pitocin Remains (milliunits) @ 4 ([facility] [place], R[facility]) Datetime: 07/27/2016 10:41 Pain Scale: 0 ([facility] [place], R[place]) Pain Presence: None/Denies ([facility] [place], [facility]) Pain Type: N/A ([facility] [place], [facility]) Pain Relief Measures: Epidural Given ([facility] [place], [place]) Pain Coping: Sleeping ([facility] [place], R[place]) Anesthesia Level Check: T10- Umbilicus ([facility] [place], R[place]) LaborFlag: Labor (QS system process) Datetime: 07/27/2016 10:38 NBP Sys/Pauline/Mean (mmHg): 107 (QS system process) : 61 (QS system process) : 79 (QS system process) Pulse: 65 (QS system process) Respirations: 16 ([facility] [place], R[place]) LaborFlag: Labor (QS system process) Datetime: 07/27/2016 10:32 Monitor Interventions for UA: [place] Adjusted ([facility] [place], R[facility]) Monitor Interventions for FHR: Ultrasound Adjusted ([facility] [place], R[facility]) Patient Position/Activity: Left Lateral; Peanut Ball ([facility] [place], R[facility]) Datetime: 07/27/2016 10:30 Monitor Mode: External; Palpation ([facility] [place], R[place]) Frequency (min): 1-3 ([facility], [facility]) Quality: Moderate ([facility] [place], R[place]) Duration (sec): 50-60 ([facility] [place], R[place]) Pattern: Normal: <= 5 Contractions in 10 Minutes ([facility] [place], R[place]) Resting Tone (Palpate): Relaxed ([facility] [place], R[place]) Monitor Mode: External US; Auscultation ([facility] [place], R[place]) FHR Baseline Rate : 135 ([facility] [place], R[place]) FHR Baseline Changes: No Baseline Change ([facility] [place], R[place]) Variability: Moderate 6-25 bpm ([facility] [place], R[place]) Decelerations: Early; Variable ([facility] [place], R[place]) Pitocin (milliunit): Pitocin Increased to (milliunits) @ (Annotations: 4) ([facility] [place], R[place]) Datetime: 07/27/2016 10:23 NBP Sys/Pauline/Mean (mmHg): 131 (QS system process) : 84 (QS system process) : 102 (QS system process) Pulse: 81 (QS system process) Respirations: 17 ([facility] [place], R[place]) LaborFlag: Labor (QS system process) Datetime: 07/27/2016 10:15 Monitor Mode: External; Palpation ([facility] [place], R[place]) Frequency (min): 1-3 ([facility], R[place]) Quality: Moderate ([facility] [place], R[place]) Duration (sec): 50-60 ([facility] [place], R[place]) Pattern: Normal: <= 5 Contractions in 10 Minutes ([facility] [place], [facility]) Resting Tone (Palpate): Relaxed ([facility] [place], R[place]) Monitor Mode: External US; Auscultation ([facility] [place], R[place]) FHR Baseline Rate : 135 ([facility] [place], R[place]) FHR Baseline Changes: No Baseline Change ([facility] [place], [facility]) Variability: Moderate 6-25 bpm ([facility] [place], R[facility]) Decelerations: Early; Variable ([facility] [place], R[facility]) Pitocin (milliunit): Pitocin Increased to (milliunits) @ ([facility] [place], R[facility]) Pitocin (milliunit): Pitocin Remains (milliunits) @ (Annotations: 2) ([facility] [place], R[facility]) Datetime: 07/27/2016 10:07 NBP Sys/Pauline/Mean (mmHg): 146 (QS system process) : 71 (QS system process) : 99 (QS system process) Pulse: 85 (QS system process) Respirations: 16 ([facility] [place], R[place]) Monitor Interventions for UA: [place] Adjusted ([facility] [place], R[place]) LaborFlag: Labor (QS system process) Datetime: 07/27/2016 10:00 Monitor Mode: External; Palpation ([facility] [place], R[place]) Monitor Interventions for UA: [place] Adjusted ([facility] [place], R[place]) Frequency (min): 2-5 ([facility] [place], [facility]) Quality: Mild/Moderate ([facility] [place], R[place]) Duration (sec): 40-70 ([facility] [place], R[place]) Duration Criteria: Less than Two 120 Second Contractions ([facility] [place], R[place]) Pattern: Normal: <= 5 Contractions in 10 Minutes ([facility] [place], [facility]) Resting Tone (Palpate): Relaxed ([facility], R[facility]) Datetime: 07/27/2016 09:58 Pitocin (milliunit): Pitocin Started (milliunits) @ 2 ([facility] [place], R[place]) Datetime: 07/27/2016 09:52 NBP Sys/Pauline/Mean (mmHg): 144 (QS system process) : 84 (QS system process) : 102 (QS system process) Pulse: 89 (QS system process) Respirations: 17 ([facility]ra [place], R[facility]) LaborFlag: Labor (QS system process) Datetime: 07/27/2016 09:48 Dilatation (cm): 9.5 ([facility] [place], R[facility]) Effacement (%): 100 ([facility] [place], R[facility]) Station: 1 ([facility]ra Turner, C) Exam by: Issa Moeller ([facility] [place], R[facility]) Vaginal Bleeding: Normal Show ([facility] [place], R[facility]) Cervix, Consistency: Soft ([facility] [place], R[facility]) Cervix, Position: Anterior ([facility] [place], R[facility]) Vaginal Exam Comments: cervix noted on right only ([facility] [place], R[facility]) Provider Reviewed Strip: Yes ([facility], R[facility]) Communication: RN at Bedside; Provider at Bedside ([facility] [place], R[facility]) Communication Comments: Issa Moeller CNM on unit to bedside for cervical exam. POC reviewed with pt and . Discussed labor process and reviewed plan for Pitocin augmentation, purpose, risks reviewed ([facility], R[facility]) Datetime: 07/27/2016 09:45 Monitor Mode: External; Palpation ([place], [place]) Frequency (min): 1.5-3 ([facility] [place], [place]) Quality: Mild/Moderate ([facility] [place], [place]) Duration (sec): 40-60 ([facility] [place], [facility]) Duration Criteria: Less than Two 120 Second Contractions ([facility] [place], [place]) Pattern: Normal: <= 5 Contractions in 10 Minutes ([facility] [place], [facility]) Resting Tone (Palpate): Relaxed ([facility] [place], R[facility]) Monitor Mode: External US; Auscultation ([facility] [place], R[place]) FHR Baseline Rate : 130 ([facility] [place], R[facility]) FHR Baseline Changes: No Baseline Change ([facility] [place], R[facility]) Variability: Moderate 6-25 bpm ([facility] [place], R[facility]) Accelerations: 15X15 ([facility], R[facility]) Decelerations: None ([facility], R[facility]) Datetime: 07/27/2016 09:38 NBP Sys/Pauline/Mean (mmHg): 127 (QS system process) : 72 (QS system process) : 95 (QS system process) Pulse: 75 (QS system process) Respirations: 17 ([facility] [place], R[place]) LaborFlag: Labor (QS system process) Datetime: 07/27/2016 09:30 Monitor Mode: External; Palpation ([facility] [place], R[place]) Frequency (min): 2-3 ([facility] [place], R[facility]) Quality: Mild/Moderate ([facility] [place], R[place]) Duration (sec): 40-70 ([facility] [place], R[facility]) Pattern: Normal: <= 5 Contractions in 10 Minutes ([facility] [place], R[place]) Resting Tone (Palpate): Relaxed ([facility] [place], R[facility]) Monitor Mode: External US; Auscultation ([facility] [place], R[place]) FHR Baseline Rate : 130 ([facility] [place], R[place]) FHR Baseline Changes: No Baseline Change ([facility] [place], R[facility]) Variability: Moderate 6-25 bpm ([facility] [place], R[facility]) Accelerations: 15X15 ([facility] [place], R[facility]) Decelerations: Variable ([facility], R[facility]) Datetime: 07/27/2016 09:26 Monitor Mode: Palpation ([facility] [place], R[facility]) Monitor Interventions for UA: [place] Adjusted ([facility] [place], R[place]) Quality: Mild/Moderate ([facility] [place], R[place]) Resting Tone (Palpate): Relaxed ([facility] [place], R[place]) Datetime: 07/27/2016 09:23 NBP Sys/Pauline/Mean (mmHg): 128 (QS system process) : 61 (QS system process) : 88 (QS system process) Pulse: 85 (QS system process) Respirations: 16 ([facility] [place], R[place]) LaborFlag: Labor (QS system process) Datetime: 07/27/2016 09:20 Patient Position/Activity: Peanut Ball; Right Extreme ([facility] [place], R[place]) Communication: RN at Bedside; RN Reviewed Strip ([facility] [place], R[facility]) Datetime: 07/27/2016 09:15 Monitor Mode: External; Palpation ([facility] [place], R[place]) Frequency (min): 3-4 ([facility] [place], R[facility]) Quality: Mild/Moderate ([facility] [place], R[facility]) Duration (sec): 50-60 ([facility] [place], R[facility]) Duration Criteria: Less than Two 120 Second Contractions ([facility] [place], R[place]) Pattern: Normal: <= 5 Contractions in 10 Minutes ([facility] [place], R[place]) Resting Tone (Palpate): Relaxed ([facility] [place], R[facility]) Monitor Mode: External US; Auscultation ([facility] [place], R[place]) FHR Baseline Rate : 130 ([facility] [place], RNC) FHR Baseline Changes: No Baseline Change ([facility] [place], R[facility]) Variability: Minimal - Undetectable to <=5 bpm ([facility] [place], R[facility]) Decelerations: Early ([facility] [place], R[facility]) Datetime: 07/27/2016 09:07 NBP Sys/Pauline/Mean (mmHg): 117 (QS system process) : 60 (QS system process) : 81 (QS system process) Pulse: 71 (QS system process) Respirations: 17 ([facility] [place], R[facility]) LaborFlag: Labor (QS system process) Datetime: 07/27/2016 09:00 Monitor Mode: External; Palpation ([facility] [place], R[facility]) Frequency (min): 1-3 ([facility] [place], R[facility]) Quality: Mild/Moderate ([facility] [place], R[facility]) Duration (sec): 60-110 ([facility] [place], R[facility]) Duration Criteria: Less than Two 120 Second Contractions ([facility] [place], R[place]) Pattern: Normal: <= 5 Contractions in 10 Minutes ([facility] [place], R[place]) Resting Tone (Palpate): Relaxed ([facility] [place], R[place]) Monitor Mode: External US; Auscultation ([facility] [place], R[place]) FHR Baseline Rate : 135 ([facility] [place], RNC) FHR Baseline Changes: No Baseline Change ([facility] [place], R[place]) Variability: Minimal - Undetectable to <=5 bpm ([facility] [place], R[facility]) Accelerations: None ([facility] [place], R[facility]) Decelerations: None ([facility], R[facility]) Pain Scale: 1 ([facility] [place], R[place]) Pain Presence: Intermittent ([facility], R[facility]) Pain Type: Pressure ([facility], RNC) Pain Location: Perineum ([facility], RNC) Pain Relief Measures: Epidural Given ([facility] [place], R[place]) LaborFlag: Labor (QS system process) Datetime: 07/27/2016 08:54 NBP Sys/Pauline/Mean (mmHg): 119 (QS system process) : 58 (QS system process) : 81 (QS system process) Pulse: 69 (QS system process) Respirations: 16 ([facility], R[place]) LaborFlag: Labor (QS system process) Datetime: 07/27/2016 08:45 Monitor Mode: External; Palpation ([facility], RNC) Monitor Interventions for UA: [place] Adjusted ([facility], RNC) Frequency (min): 3-4 ([facility], RNC) Quality: Moderate ([facility], RNC) Duration (sec): 50-70 ([facility], RNC) Pattern: Normal: <= 5 Contractions in 10 Minutes ([facility], R[facility]) Resting Tone (Palpate): Relaxed ([facility], RNC) Monitor Mode: External US; Auscultation ([facility], RNC) FHR Baseline Rate : 135 ([facility], RNC) FHR Baseline Changes: No Baseline Change ([facility], RNC) Variability: Minimal - Undetectable to <=5 bpm ([facility], RNC) Datetime: 07/27/2016 08:39 NBP Sys/Pauline/Mean (mmHg): 107 (QS system process) : 53 (QS system process) : 76 (QS system process) Pulse: 71 (QS system process) Respirations: 16 ([facility], RNC) LaborFlag: Labor (QS system process) Datetime: 07/27/2016 08:35 Monitor Interventions for UA: [place] Adjusted (Rosa Palafox RN) Monitor Interventions for FHR: Ultrasound Adjusted (Rosa Palafox RN) Patient Position/Activity: Left Lateral; Peanut Ball (Rosa Palafox RN) Datetime: 07/27/2016 08:30 Monitor Mode: External; Palpation ([facility], RNC) Frequency (min): 2-3 ([facility], RNC) Quality: Mild/Moderate ([facility], RNC) Duration (sec): 50-70 ([facility], RNC) Pattern: Normal: <= 5 Contractions in 10 Minutes ([facility], RNC) Resting Tone (Palpate): Relaxed ([facility], RNC) Monitor Mode: External US; Auscultation ([facility], RNC) FHR Baseline Rate : 135 ([facility] [place], RNC) FHR Baseline Changes: No Baseline Change ([facility] [place], RNC) Variability: Moderate 6-25 bpm ([facility], RNC) Decelerations: Variable ([facility], RNC) Datetime: 07/27/2016 08:23 NBP Sys/Pauline/Mean (mmHg): 127 (QS system process) : 82 (QS system process) : 99 (QS system process) Pulse: 92 (QS system process) Respirations: 16 ([facility] [place], RNC) LaborFlag: Labor (QS system process) Datetime: 07/27/2016 08:15 Monitor Mode: External; Palpation ([facility] Camp, RNC) Frequency (min): 3-4 ([facility], RNC) Quality: Mild/Moderate ([facility] Camp, RNC) Duration (sec): 60-70 ([facility], RNC) Duration Criteria: Less than Two 120 Second Contractions ([facility], RNC) Pattern: Normal: <= 5 Contractions in 10 Minutes ([facility], RNC) Resting Tone (Palpate): Relaxed ([facility], RNC) Monitor Mode: External US; Auscultation ([facility] [place], RNC) FHR Baseline Rate : 135 ([facility] Camp, RNC) FHR Baseline Changes: No Baseline Change ([facility], RNC) Variability: Moderate 6-25 bpm ([facility] Camp, RNC) Decelerations: Variable ([facility], RNC) Datetime: 07/27/2016 08:08 NBP Sys/Pauline/Mean (mmHg): 122 (QS system process) : 78 (QS system process) : 96 (QS system process) Pulse: 90 (QS system process) Respirations: 17 ([facility] [place], RNC) LaborFlag: Labor (QS system process) Datetime: 07/27/2016 08:07 NBP Sys/Pauline/Mean (mmHg): 127 (QS system process) : 83 (QS system process) : 101 (QS system process) Pulse: 80 (QS system process) Temperature (F): 97.5 ([facility] [place], RNC) Temperature (C): 36.4 (QS system process) Temperature Route: Oral ([facility] [place], RNC) LaborFlag: Labor (QS system process) Datetime: 07/27/2016 08:05 Monitor Interventions for UA: [place] Adjusted ([facility], RNC) Datetime: 07/27/2016 08:00 Monitor Mode: External; Palpation ([facility], RNC) Frequency (min): 3-4 ([facility], RNC) Quality: Mild/Moderate ([facility], RNC) Duration (sec): 50-70 ([facility], RNC) Duration Criteria: Less than Two 120 Second Contractions ([facility], RNC) Pattern: Normal: <= 5 Contractions in 10 Minutes (Zara Camp, RNC) Resting Tone (Palpate): Relaxed ([facility], RNC) Monitor Mode: External US; Auscultation ([facility], RNC) FHR Baseline Rate : 135 ([facility], RNC) FHR Baseline Changes: No Baseline Change ([facility], RNC) Variability: Moderate 6-25 bpm ([facility], RNC) Accelerations: 15X15 ([facility], RNC) Decelerations: Variable ([facility], RNC) Comments: Repositioned to right lateral with peanut ball. [place] and u/s adjusted ([facility] Camp, RNC) Level of Consciousness: Fully Conscious ([facility], RNC) DTR's/Clonus: DTRs 2+; No Clonus ([facility], RNC) Headache: Denies ([facility], RNC) Breath Sounds, Left: Clear and Equal ([facility] [place], RNC) Breath Sounds, Right: Clear and Equal ([facility], RNC) Nausea/Vomiting: Denies ([facility] [place], RNC) RUQ Epigastric Pain: Denies ([facility], RNC) Datetime: 07/27/2016 07:56 Dilatation (cm): 9.5 ([facility], RNC) Effacement (%): 100 ([facility], RNC) Station: 0 ([facility], RNC) Exam by: Issa Moeller ([facility], R[place]) Membrane Status: Ruptured ([facility], RNC) Membranes Rupture Method: Artificial ([facility], RNC) Amniotic Fluid Amount: Small ([facility], RNC) Membrane Comments: Forebag ruptured by Issa Moeller CN ([facility], RNC) Datetime: 07/27/2016 07:52 NBP Sys/Pauline/Mean (mmHg): 121 (QS system process) : 72 (QS system process) : 91 (QS system process) Pulse: 83 (QS system process) LaborFlag: Labor (QS system process) Datetime: 07/27/2016 07:50 NBP Sys/Pauline/Mean (mmHg): 118 (QS system process) : 75 (QS system process) : 74 (QS system process) : 91 (QS system process) : 90 (QS system process) Pulse: 93 (QS system process) Pulse: 81 (QS system process) LaborFlag: Labor (QS system process) Datetime: 07/27/2016 07:49 Dilatation (cm): 9.0 (Anjelica KENYA Davalos) Effacement (%): 100 (Anjelica KENYA Davalos) Exam by: S. Camp, RN (Anjelica Davalos RN) Membrane Status: Bulging (Anjelica Davalos RN) Datetime: 07/27/2016 07:48 NBP Sys/Pauline/Mean (mmHg): 116 (QS system process) NBP Sys/Pauline/Mean (mmHg): 117 (QS system process) : 73 (QS system process) : 89 (QS system process) : 91 (QS system process) Pulse: 88 (QS system process) I/O Interventions: Givens Cath Inserted (Anjelica Davalos RN) Patient Care Comments: Clear urine draining (Anjelica Davalos RN) LaborFlag: Labor (QS system process) Datetime: 07/27/2016 07:47 NBP Sys/Pauline/Mean (mmHg): 122 (QS system process) : 71 (QS system process) : 93 (QS system process) Pulse: 83 (QS system process) Monitor Interventions for UA: [place] Adjusted (Anjelica Davalos RN) Anesthesia Plans: Epidural (Anjelica Davalos RN) Epidural Procedure Other: Pump Started (Anjelica Vitrano, RN) LaborFlag: Labor (QS system process) Datetime: 07/27/2016 07:46 NBP Sys/Pauline/Mean (mmHg): 121 (QS system process) : 73 (QS system process) : 92 (QS system process) Pulse: 83 (QS system process) LaborFlag: Labor (QS system process) Datetime: 07/27/2016 07:45 NBP Sys/Pauline/Mean (mmHg): 127 (QS system process) : 77 (QS system process) : 97 (QS system process) Pulse: 85 (QS system process) Respirations: 16 ([facility], RNC) Anesthesia Level Check: T10- Umbilicus (Anjelica Vitrano, RN) LaborFlag: Labor (QS system process) Datetime: 07/27/2016 07:44 Patient Position/Activity: Right Tilt; Low Fowlers (Anjelica Vitrano, RN) Datetime: 07/27/2016 07:42 NBP Sys/Pauline/Mean (mmHg): 138 (QS system process) : 89 (QS system process) : 109 (QS system process) Pulse: 82 (QS system process) LaborFlag: Labor (QS system process) Datetime: 07/27/2016 07:41 NBP Sys/Pauline/Mean (mmHg): 138 (QS system process) : 90 (QS system process) : 109 (QS system process) Pulse: 93 (QS system process) Anesthesia Plans: Epidural (Anjelica Vitrano, RN) Epidural Procedure: Loading Dose (Anjelica Vitrano, RN) LaborFlag: Labor (QS system process) Datetime: 07/27/2016 07:40 NBP Sys/Pauline/Mean (mmHg): 137 (QS system process) : 90 (QS system process) : 109 (QS system process) Pulse: 96 (QS system process) Respirations: 16 (Azra Camp, RNC) Anesthesia Plans: Epidural (Anjelica Vitrano, RN) Epidural Procedure: Cath Placed (Anjelica Vitrano, RN) Epidural Procedure: Test Dose (Anjelica Vitrano, RN) LaborFlag: Labor (QS system process) Datetime: 07/27/2016 07:31 Comments: Broken tracing d/t pt position for epidural; RN remains at bedside continuously adjusting US throughout procedure (Anjelica Vitrano, RN) Datetime: 07/27/2016 07:30 Monitor Mode: External; Palpation (Azra Camp, RNC) Frequency (min): 2-3 (Azra Camp, RNC) Quality: Mild/Moderate (Azra Camp, RNC) Duration (sec): 50-70 (Azra Camp, RNC) Duration Criteria: Less than Two 120 Second Contractions (Azra Camp, RNC) Pattern: Normal: <= 5 Contractions in 10 Minutes (Azra Camp, RNC) Resting Tone (Palpate): Relaxed (Azra Camp, RNC) Monitor Mode: External US; Auscultation (Azra Camp, RNC) FHR Baseline Rate : 130 (Azra Camp, RNC) FHR Baseline Changes: No Baseline Change (Azra Camp, RNC) Variability: Moderate 6-25 bpm (Azra Camp, RNC) Accelerations: 15X15 (Azra Camp, RNC) Decelerations: Variable (Azra Camp, RNC) Datetime: 07/27/2016 07:28 Procedure Verify: Correct Patient Identity; Correct Side and Site are Marked; Accurate Procedure Consent Form; Agreement on Procedure to be Done; Correct Patient Position; Relevant Images and Results are Properly Labeled and Displayed; Addressed Need to Administer Antibiotics or Fluids for Irrigation; Safety Precautions Based on Patient History or Medication Use (Anjelica Davalos RN) Anesthesia Plans: Epidural (Anjelica Davalos RN) Epidural Positioning: Sitting (Anjelica Davalos RN) Anesthesia Comments: Dr. Ferreira at bedside for epidural (Anjelica Vitrano, RN) Datetime: 07/27/2016 07:26 Dilatation (cm): 8.0 (Anjelica Vitrano, RN) Exam by: Cecille Turner RN (Anjelica Vitrano, RN) Membrane Status: Bulging (Anjelica Vitrano, RN) Datetime: 07/27/2016 07:25 Pushing: Urge to Push (Anjelica Vitrano, RN) Datetime: 07/27/2016 07:14 Stage of : Labor (Crystal Warren, RN) Strip Reviewed by: Rakan Santos RN (Diana Santos RN) Communication: Report Given to @ Cecille Turner RN (Diana Santos RN) Notification Reason: Status Update; Status; Labor Status; Membrane Status; Uterine Activity; Pain; Lab/Diagnostic Study (Diana Santos RN) Datetime: 07/27/2016 07:13 Dilatation (cm): 7.5 (Diana Santos RN) Effacement (%): 100 (Diana Santos RN) Station: -1 (Diana Santos RN) Exam by: Kalpesh Turner (Diana Santos RN) Vaginal Exam Comments: bulging forebag noted, (Diana Santos RN) Patient Care Comments: c/o increasing pressure (Diana Santos RN) Datetime: 07/27/2016 07:07 Monitor Mode: External; Palpation (Diana Santos RN) Frequency (min): 4-6 (Crystal Tom, RN) Quality: Moderate to Strong (Crystal Warren, RN) Duration (sec): 90-110 (Crystal Tom, RN) Duration Criteria: Less than Two 120 Second Contractions (Crystal Warren, RN) Resting Tone (Palpate): Relaxed (Crystal Warren, RN) Monitor Mode: External US (Crystal Tom, RN) FHR Baseline Rate : 135 (Crystal Warren, RN) Variability: Moderate 6-25 bpm (Crystal Tom, RN) Accelerations: 15X15 (Crystal Tom, RN) Patient Position/Activity: Left Extreme (Crystal Tom, RN) Datetime: 07/27/2016 07:05 Pushing: Urge to Push (Crystal Tom, RN) Datetime: 07/27/2016 07:04 NBP Sys/Pauline/Mean (mmHg): 124 (QS system process) : 78 (QS system process) : 96 (QS system process) Pulse: 93 (QS system process) IV/Blood Work: New IV Bag Hung (Crystal Tom, RN) LaborFlag: Labor (QS system process) Datetime: 07/27/2016 07:03 Communication: RN at Bedside (Crystal Tom, RN) Datetime: 07/27/2016 07:00 Procedures: Labs Drawn (Crystal Tom, RN)
[2016-07-28] MEDS: IBUPROFEN 800 MG TABLET PO SCH ×3 (05:56→22:49)
--- NOTE | 2016-07-28 06:00 | L&D Current Admission ---
Current Admit Datetime Report Generated by CPN: 07/28/2016 06:00 ADMISSION INFORMATION Current Admit Date/Time: 07/27/2016 06:49 (07/27/2016 05:37:Diana Santos RN) Reason for Admission: Onset of Labor (07/27/2016 05:37:Diana Santos RN) Chief Complaint: Contractions (07/27/2016 05:37:Diana Santos RN) Medications During : Vitamin; Rantidine (Zantac) (07/27/2016 05:37:PRAVIN Grullon) Meds During -Oth: prilosec otd (07/27/2016 05:37:PRAVIN Grullon) EGA per Dates: 40.6 (07/27/2016 05:37:QS system process) Method of Arrival: Wheelchair (07/27/2016 05:37:Diana Santos RN) Reason for Induction: Not Applicable (07/27/2016 05:37:PRAVIN Grullon) Records Available: Yes (07/27/2016 05:37:Diana Santos RN) General Admission Information: Reviewed; Updated; Confirmed (07/27/2016 05:37:PRAVIN Grullon) General Admission Reviewed By: Diana Santos RN (07/27/2016 05:37:PRAVIN Grullon) BELONGINGS/ADVANCED DIRECTIVES Valuables/Personal Effects: Purse/Wallet; Cell Phone (07/27/2016 05:37:Diana Santos RN) Disposition of Belongings: Kept with Patient (07/27/2016 05:37:Diana Santos RN) Comments Regarding Disposition: See [facility] Valuables consent (07/27/2016 05:37:PRAVIN Grullon) Advance Direct for Healthcare: No, and Wants No Information (07/27/2016 05:37:Diana Santos RN) Durable Power of Forensic Photographer: No (07/27/2016 05:37:Diana Santos RN) Living Will: No (07/27/2016 05:37:Diana Santos RN) Organ Donor: Yes (07/27/2016 05:37:Diana Santos RN) Pt Rights Information Given: Yes (07/27/2016 05:37:Diana Santos RN) Pt Understands Pt Rights: Yes (07/27/2016 05:37:Diana Santos RN) LEARNING ASSESSMENT Knowledge Level: Understands L_D Process; Understands Care Activities; Had Pre-Hospital Education; Understands Diagnosis (07/27/2016 05:37:Diana Santos RN) Barriers to Learning: Emotional State; Pain (07/27/2016 05:37:Diana Santos RN) Learning Readiness: Motivated (07/27/2016 05:37:Diana Santos RN) Learns Best By: 1 to 1 Instruction (07/27/2016 05:37:Diana Santos RN) Learning Needs: Labor and Delivery Process; Pain Management; Symptoms to Report; Treatment Plan; Medication; Diagnosis; Nutrition; Equipment; Infant Care (07/27/2016 05:37:Diana Santos RN) DOMESTIC VIOLANCE SCREENING Dom Viol Threatened/Hurt: No (07/27/2016 05:37:PRAVIN Grullon) Hx of Abuse/Neglect past 2yrs: No (07/27/2016 05:37:PRAVIN Grullon) Feel Unsafe Going Home: No (07/27/2016 05:37:PRAVIN Grullon) Addt'l Observ Indicating Abuse: No (07/27/2016 05:37:PRAVIN Grullon) Reason Unable to Complete Screen: N/A, Screen Completed (07/27/2016 05:37:PRAVIN Grullon) Considered Personal Harm/Suicide: No (07/27/2016 05:37:Azraradha Turner, RN) NUTRITIONAL/FUNCTIONAL SCREENING Problem with Appetite >5 Days: No (07/27/2016 05:37:Diana Santos RN) Chew/Swallow Difficulties: No (07/27/2016 05:37:Diana Santos RN) Inappropriate Wt Gain/Loss: No (07/27/2016 05:37:Diana Santos RN) Presence Skin Breakdown/Ulcer: No (07/27/2016 05:37:Diana Santos RN) Special Diet: No (07/27/2016 05:37:Diana Santos RN) Pt Requests Central Office Repairer Visit: No (07/27/2016 05:37:Diana Santos RN) Hx of Any of the Following?: N/A (07/27/2016 05:37:Diana Santos RN) New Diagnosis of: N/A (07/27/2016 05:37:Diana Santos RN) Requires Assist w/Ambulation: No (07/27/2016 05:37:Diana Santos RN) Uses Assist Device to Ambulate: No (07/27/2016 05:37:Diana Santos RN) Pt Requires Help w/ADL's: No (07/27/2016 05:37:Diana Santos RN)
--- NOTE | 2016-07-28 06:01 | L&D General Admission ---
General Admit Datetime Report Generated by CPN: 07/28/2016 06:00 INFORMATION Patient Age: 30 (05/01/2016 15:12:QS system process) EDC: 07/21/2016 00:00 (05/01/2016 15:13:Anjelica Davalos RN) : 4 (05/01/2016 15:13:Anjelica Davalos RN) Para: 1 (07/15/2016 13:53:Mel Stokes RN) Term: 0 (05/01/2016 15:13:Anjelica Davalos RN) : 1 (05/01/2016 15:13:Anjelica Davalos RN) Spontaneous Abortions: 2 (05/01/2016 15:13:Anjelica Davalos RN) Induced Abortions: 0 (05/01/2016 15:13:Anjelica Davalos RN) Livin (05/01/2016 15:13:Anjelica Davalos RN) Cesareans: 0 (05/01/2016 15:13:Anjelica Davalos RN) VBACs: 0 (05/01/2016 15:13:Anjelica Davalos RN) Ectopic: 0 (05/01/2016 15:13:Anjelica Davalos RN) Multiple Births: 0 (05/01/2016 15:13:Anjelica Davalos RN) Baby, Number in Womb: 1 (07/15/2016 13:53:Mel Stokes RN) CARE Primary Inspector Weights And Measures: [facility] (05/01/2016 15:13:Anjelica Davalos RN) Month of 1st Visit: 11/2015 (05/01/2016 15:13:Anjelica Davalos RN) Adequate Care: Yes (05/01/2016 15:13:Anjelica Davalos RN) Prepregnancy Weight (lb): 133 (05/01/2016 15:13:Anjelica Davalos RN) Prepregnancy Weight (kg): 60.5 (05/01/2016 15:13:QS system process) Height (in): 62 (07/27/2016 14:12:QS system process) ALLERGIES Medication Allergy: Yes (05/01/2016 15:13:Anjelica Davalos RN) Medication Allergies: Sulfa (Sulfonamide Antibiotics)/MO/Generalized marguerite (07/23/2016) (07/23/2016 12:09:QS system process) Latex Allergy: No Latex Allergies (05/01/2016 15:13:Anjelica Davalos RN) Food Allergies: N/A (05/01/2016 15:13:Anjelica Davalos RN) Environmental Allergies: N/A (05/01/2016 15:13:Anjelica Davalos RN) COMMUNICATION Primary Language: Vietnamese (05/01/2016 15:13:Anjelica Davalos RN) Medical Tx Preferred Language: Vietnamese (05/01/2016 15:13:Anjelica Davalos RN) Communication Barrier(s): None (05/01/2016 15:13:Anjelica Davalos RN) DEMOGRAPHICS Address: [address] [place] [id number] (05/01/2016 15:12:QS system process) Zipcode: [address] (05/01/2016 15:12:QS system process) Home (05/01/2016 15:12:QS system process) SSN: [id number] (05/01/2016 15:12:QS system process) Next of Kin Name: TERRANCE COSME (05/01/2016 15:12:QS system process) Next of Kin (05/01/2016 15:12:QS system process) Next of Kin Relationship: SPO (05/01/2016 15:12:QS system process) Date of : 1985 (05/01/2016 15:12:QS system process) Marital Status: (05/01/2016 15:12:QS system process) Sex: Female (05/01/2016 15:12:QS system process) 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: Naval (05/01/2016 15:13:Anjelica Davalos RN) Feeding Preference: Breast (05/01/2016 15:13:PRAVIN Grullon) Benefit of Breast Feed Discussed: Yes (05/01/2016 15:13:Anjelica Davalos RN) Circumcision: N/A (05/01/2016 15:13:Anjelica Davalos RN) Classes Attended: No (05/01/2016 15:13:Anjelica Davalos RN) Tubal Ligation: No (05/01/2016 15:13:Anjelica Davalos RN) Tubal Authorization Signed: N/A (05/01/2016 15:13:Anjelica Davalos RN) Consent: N/A (05/01/2016 15:13:Anjelica Davalos RN) Consent Signed: N/A (05/01/2016 15:13:Anjelica Davalos RN) Pain Management Plans: None (05/01/2016 15:13:Anjelica Davalos RN) Plans for Labor and Delivery: None (05/01/2016 15:13:Anjelica Davalos RN) Support Person: Terrance (05/01/2016 15:13:Anjelica Davalos RN) Support Person Relationship: (05/01/2016 15:13:Anjelica Davalos RN) Cultural/Spritual Practice: No (05/01/2016 15:13:Anjelica Davalos RN) Spir/Cult Dietary Needs: No (05/01/2016 15:13:Anjelica Davalos RN) LIVING SITUATION/DISCHARGE PLAN Living Arrangements: House (05/01/2016 15:13:Anjelica Davalos RN) Adequate Access to:: Electric; Heat; Refrigeration; Plumbing/Running water; Phone; Transportation (05/01/2016 15:13:Anjelica Davalos RN) WIC Program: No (05/01/2016 15:13:Anjelica Davalos RN) Discharge Expansion Joint Finisher Person: (05/01/2016 15:13:Anjelica Davalos RN) Person to Help after Discharge: (05/01/2016 15:13:Anjelica Davalos RN) Currently Using Commun Resources: No (05/01/2016 15:13:Anjelica Davalos RN) Outside Agency/Plant Attendant: No (05/01/2016 15:13:Anjelica Davalos RN) Car Seat for Discharge: Yes (05/01/2016 15:13:Anjelica Davalos RN) Adoption Requested: No (05/01/2016 15:13:Anjelica Davalos RN) Pt Contact w/ Post : N/A (05/01/2016 15:13:Anjelica Davalos RN) LABS Blood Type: O Positive (05/01/2016 15:13:Anjelica Davalos RN) Antibody Screen: Negative (05/01/2016 15:13:Anjelica Davalos RN) Rho(G) this : Not Applicable (05/01/2016 15:13:Anjelica Davalos RN) Hemoglobin: 9.6 L (07/27/2016 07:01:QS system process) Hematocrit: 30.1 L (07/27/2016 07:01:QS system process) MCV: 71 L (07/27/2016 07:01:QS system process) Group Beta Strep: negative (05/01/2016 15:13:Patsy Rowe RN) Gonorrhea: Negative (05/01/2016 15:13:Patsy Rowe RN) Chlamydia: Negative (05/01/2016 15:13:Patsy Rowe RN) RPR/VDRL: Nonreactive (05/01/2016 15:13:Anjelica Davalos RN) HIV Exposure Test: Negative (05/01/2016 15:13:Anjelica Davalos RN) Hepatitis B: Negative (05/01/2016 15:13:Anjelica Davalos RN) Rubella: Immune (05/01/2016 15:13:Anjelica Davalos RN) OB/PREVIOUS HISTORY Previous Procedures: Ultrasound; NST (05/01/2016 15:13:PRAVIN Grullon) Current Procedures: Ultrasound; NST (05/01/2016 15:13:PRAVIN Grullon) History of Previous : No (05/01/2016 15:13:Anjelica Davalos RN) History of Gestational Diabetes: No (05/01/2016 15:13:Anjelica Davalos RN) History of PIH: No (05/01/2016 15:13:Anjelica Davalos RN) History of Incompetent Cervix: No (05/01/2016 15:13:Anjelica Davalos RN) History of Placenta Previa/Abrup: No (05/01/2016 15:13:Anjelica Davalos RN) History of Macrosomia: No (05/01/2016 15:13:Anjelica Davalos RN) History of IUGR: No (05/01/2016 15:13:Anjelica Davalos RN) History of Hemorrhage: No (05/01/2016 15:13:Anjelica Davalos RN) History of Loss/Stillborn: No (05/01/2016 15:13:Anjelica Davalos RN) History of : No (05/01/2016 15:13:Anjelica Davalos RN) History of D (Rh) Sensitization: No (05/01/2016 15:13:Anjelica Davalos RN) History Recurrent Loss/Stillborn: No (05/01/2016 15:13:Anjelica Davalos RN) History Depression/PP Depression: No (05/01/2016 15:13:Anjelica Davalos RN) History of Uterine Anomaly/CRYSTAL: No (05/01/2016 15:13:Anjelica Davalos RN) History of Infertility: No (05/01/2016 15:13:Anjelica Davalos RN) History of ART Treatment: No (05/01/2016 15:13:Anjelica Davalos RN) History of CRYSTAL: No (05/01/2016 15:13:Anjelica Davalos RN) Comments Obstetrical History: G1: 2013 baby girl, 27.5 weeks, 2 lb 6 oz G2: 2012 9 weeks SAB G3: 2013 chemical G4: Current; Echogenic foci, left duplicated kidney, P17 and serial CLs (05/01/2016 15:13:Anjelica Davalos RN) MEDICAL HISTORY Med Hx Diabetes: No (05/01/2016 15:13:Anjelica Davalos RN) Med Hx Hypertension: No (05/01/2016 15:13:Anjelica Davalos RN) Med Hx Heart Disease: No (05/01/2016 15:13:Anjelica Davalos RN) Med Hx Autoimmune Disorder: No (05/01/2016 15:13:Anjelica Davalos RN) Med Hx Kidney Disease/UTI: No (05/01/2016 15:13:Anjelica Davalos RN) Med Hx Neurologic/Epilepsy: No (05/01/2016 15:13:Anjelica Davalos RN) Med Hx Psychiatric Disorders: No (05/01/2016 15:13:Anjelica Davalos RN) Med Hx Hepatitis/Liver Disease: No (05/01/2016 15:13:Anjelica Davalos RN) Med Hx Varicosities/Phlebitis: No (05/01/2016 15:13:Anjelica Davalos RN) Med Hx Thyroid Dysfunction: No (05/01/2016 15:13:Anjelica Davalos RN) Med Hx Trauma/Violence: No (05/01/2016 15:13:Anjelica Davalos RN) Med Hx Blood Transfusion: No (05/01/2016 15:13:Anjelica Davalos RN) Med Hx Pulmonary (Asthma,TB): No (05/01/2016 15:13:Anjelica Davalos RN) Med Hx Breast: No (05/01/2016 15:13:Anjelica Davalos RN) Med Hx 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 Surgery: No (05/01/2016 15:13:Anjelica Davalos RN) Med Hx Hospitalization/Surgery: Yes (05/01/2016 15:13:Anjelica Davalos RN) Med Hx Anesthetic Complications: No (05/01/2016 15:13:Anjelica Davalos RN) Med Hx Abnormal Pap Smear: Yes (05/01/2016 15:13:Anjelica Davalos RN) Other Medical Diseases: No (05/01/2016 15:13:Anjelica Davalos RN) Med Hx Significant Family Hx: No (05/01/2016 15:13:Anjelica Davalos RN) Details of Med/Surg Hx: Surgery: Appendectomy Abnormal Pap: LGSIL with HPV (05/01/2016 15:13:Anjelica Davalos RN) INFECTIOUS HISTORY Inf Hx Gonorrhea: No (05/01/2016 15:13:Anjelica Davalos RN) Inf Hx Chlamydia: No (05/01/2016 15:13:Anjelica Davalos RN) Inf Hx Syphilis: No (05/01/2016 15:13:Anjelica Davalos RN) Inf Hx HIV/AIDS: No (05/01/2016 15:13:Anjelica Davalos RN) Inf Hx Human Papilloma Virus: Yes (05/01/2016 15:13:Anjelica Davalos RN) Inf Hx Pt/Partner Genital Herpes: No (05/01/2016 15:13:Anjelica Davalos RN) Inf Hx Tuberculosis/Exposure: No (05/01/2016 15:13:Anjelica Davalos RN) Inf Hx Hepatitis B,C: No (05/01/2016 15:13:Anjelica Davalos RN) Inf Hx Rash or Viral Illness: No (05/01/2016 15:13:Anjelica Davalos RN) Details of Infectious Hx: HPV: Colpo 01/10 (05/01/2016 15:13:Anjelica Davalos RN) GENETIC HISTORY Gen Hx Age >=35 at ADDY: No (05/01/2016 15:13:Anjelica Davalos RN) Gen Hx Thalassemia: No (05/01/2016 15:13:Anjelica Davalos RN) Gen Hx Congenital Heart Defect: No (05/01/2016 15:13:Anjelica Davalos RN) Gen Hx Neural Tube Defect: No (05/01/2016 15:13:Anjelica Davalos RN) Gen Hx Down's Syndrome: No (05/01/2016 15:13:Anjelica Davalos RN) Gen Hx Dion-Sachs: No (05/01/2016 15:13:Anjelica Davalos RN) Gen Hx Zaida: No (05/01/2016 15:13:Anjelica Davalos RN) Gen Hx Familial Dysautonomia: No (05/01/2016 15:13:Anjelica Davalos RN) Gen Hx Sickle Cell Disease/Trait: No (05/01/2016 15:13:Anjelica Davalos RN) Gen Hx Hemophilia/Blood Disorder: No (05/01/2016 15:13:Anjelica Davalos RN) Gen Hx Muscular Dystrophy: No (05/01/2016 15:13:Anjelica Davalos RN) Gen Hx Cystic Fibrosis: No (05/01/2016 15:13:Anjelica Davalos RN) Gen Hx Huntingtons Chorea: No (05/01/2016 15:13:Anjelica Davalos RN) Gen Hx Mental Retardation/Autism: No (05/01/2016 15:13:Anjelica Davalos RN) Gen Hx Tested for Fragile X: No (05/01/2016 15:13:Anjelica Davalos RN) Gen Hx Other Inher/Chromosomal: No (05/01/2016 15:13:Anjelica Davalos RN) Gen Hx Maternal Metabolic DO: No (05/01/2016 15:13:Anjelica Davalos RN) Gen Hx Pt Father or FOB Defect: No (05/01/2016 15:13:Anjelica Davalos RN) Gen Hx Other Genetic History: No (05/01/2016 15:13:Anjelica Davalos RN) Gen Hx Drugs/Meds since LMP: No (05/01/2016 15:13:Anjelica Davalos RN)
--- NOTE | 2016-07-28 06:16 | L&D Care Plan ---
LD CARE PLANS Datetime Report Generated by CPEarl: 07/28/2016 06:15 Datetime: 07/27/2016 07:02 State: Risk For (Flower Segovia RN) Related To: Labor and Delivery Process; Surgical Procedure; Complication(s) of ; Disease Process; Treatment and Procedures; Post (Flower Segovia RN) Goal(s): Patients Pain will be Assessed and Managed; Patient will Verbalize Adequate Relief of Pain or the Ability to Teller with Current Pain (Flower Segovia RN) Interventions: Assess Pain Severity on Scale of 0 (None) to 5 (Severe); Assess Type, Location and Intensity of Pain Each Time Client Reports Discomfort and Notify Provider if Unusal Pain Develops; Encourage Proper Breathing and Relaxation Techniques; Offer Alternatives Such as Repositioning, Calm Environment, Massages, Diversional Activities, Ice Pack, Splinting, and Ambulation; Administer Analgesics as Ordered; Assist with Epidural Placement as Appropriate; Evaluate Therapeutic Effectiveness of Medication and Treatments (Flower Segovia RN) Outcome: Patient will Report Absence or Relief of Pain Consistent with Established Pain Goal (Flower Segovia RN) Status: Ongoing (Flower Segovia RN) Outcome: Patient will have a Decrease in Signs and Symptoms of Discomfort (Flower Segovia RN) Status: Ongoing (Flower Segovia RN) Outcome: Pain will be Controlled During Procedures (Flower Segovia RN) Status: Ongoing (Flower Segovia RN) State: Risk For (Flower Segovia RN) Related To: Labor and Delivery Process; Surgical Procedure; Perceived or Actual Threat to ; Fear of Unknown; Situational Crisis; Medical Interventions; Significant Life Event (Flower Segovia RN) Goal(s): Patient will have Decreased Anxiety and be able to Function at Acceptable Levels (Flower Segovia RN) Interventions: Assess Verbal and Nonverbal Behavioral Indicators of Anxiety; Assist Patient to Identify and Verbalize Symptoms of Anxiety; Identify and Demonstrate Techniques to Control Anxiety; Assist Patient with Coping Mechanisms to Manage Anxiety; Provide Theraputic Touch for the Patient; Explain to Patient, Using a Calm Reassuring Approach and Nonmedical Terms, All Activities, Procedures, and Concerns; Instruct Patient and Family about Post Discharge Care, Limitations, Symptoms to Report and Resources Available (Flower Segovia RN) Outcome: Patient will Identify, Verbalize and Demonstrate Techniques to Control Anxiety (Flower Segovia RN) Status: Ongoing (Flower Segovia RN) Outcome: Patient's Posture, Facial Expressions, Gestures and Activity Level will Reflect Decreased Anxiety (Flower Segovia RN) Status: Ongoing (Flower Segovia RN) Outcome: Patient will Verbalize a Sense of Control and/or Acceptance of the Situation (Flower Segovia RN) Status: Ongoing (Flower Segovia RN) Outcome: Patient will Identify and Utilize Support Person (Flower Segovia RN) Status: Ongoing (Flower Segovia RN) State: Risk For (Flower Segovia RN) Related To: Labor and Delivery Process; Surgical Procedures; Treatment and Procedures; Impending Alterations in Family Dynamics; Feeding and Infant Care; Community Resources and Available Support Mechanisms (Flower Segovia RN) Goal(s): Patient will Accurately Verbalize Understanding of Plan of Care and Treatment; Patient and Family will Accurately Verbalize Understanding of the Disease Process (Flower Segovia RN) Interventions: Assess Motivation and Willingness of Patient/Family to Learn; Assess Preferred Learning Mode: One to One Instruction, Reading, Videos, Group Discussion or Demonstration; Assess Barriers to Learning: Pain, Emotional State, Language Barrier, Cognitive Impairment, Visual or Hearing Deficits; Assess Patient and Family Knowledge of Disease Process, Medications and Treatment; Discuss Therapy and/or Treatment Options, Describe Rationale Behind Management, Therapy and Treatment Recommendations; Instruct Patient and Family on Signs and Symptoms to Report; Instruct Patient and Family on Medication Effects and Side Effects; Provide Appropriate and Timely Education Using Multiple Techniques; Provide Patient and Family with Support Group Information and Resources; Give Clear and Thorough Explanations and Demonstrations (Flower Segovia RN) Outcome: Patient and Family will Verbalize Understanding of Condition, Treatment and Signs and Symptoms to Report (Flower Segovia RN) Status: Ongoing (Flower Segovia RN) Outcome: Patient will Identify Perceived Learning Needs and Express Motivation to Learn (Flower Segovia RN) Status: Ongoing (Flower Segovia RN) Outcome: Patient will Verbalize Understanding of Desired Content, and/or Performs Desired Skill Prior to Discharge (Flower Segovia RN) Status: Ongoing (Flower Segovia RN) State: Risk For (Flower Segovia RN) Related To: Surgical Procedures; Prolonged Labor or Induction; Premature/Prolonged Rupture of Membranes; Invasive Procedures; Altered Tissue Integrity (Flower Segovia RN) Goal(s): The Patient will be Free of Infection, Vital Signs Stable and Lab Work within Normal Parameters (Flower Segovia RN) Interventions: Instruct and Reinforce Proper Handwashing, Hygiene, and Care Techniques to Patient and Family; Monitor Vital Signs; Monitor Patient for the Following Signs of Infection: Fever, Abdominal Tenderness, Unusual Discharge; Monitor Aminiotic Fluid, Urine and Lochia for Color and Odor; Observe Wounds, Incisions and Invasive Line Sites for Redness, Drainage and Edema; Assess IV Sites per Hospital Policy; Monitor Lab and Test Results and Notify Provider of Abnormal Findings; Assess Nutritional Status and Promote Good Nutrition (Flower Segovia RN) Outcome: Patient will Remain Free of Infection (Flower Segovia RN) Status: Ongoing (Flower Segovia RN) Outcome: Infection will be Recognized Early to Allow for Prompt Treatment (Flower Segovia RN) Status: Ongoing (Flower Segovia RN) Outcome: Patient will have Vital Signs Within Expected Range (Flower Segovia RN) Status: Ongoing (Flower Segovia RN) State: Risk For (Flower Segovia RN) Related To: Gestational Hypertension; Surgical Procedures; Prolonged Labor or Induction; Hemorrhage; Disease Process; Anesthesia; Altered Renal Function (Flower Segovia RN) Goal(s): Patient will Achieve and Maintain a Balanced Fluid Volume Status; Hemodynamically Stable (Flower Segovia RN) Interventions: Monitor Vital Signs; Auscultate Breath Sounds; Monitor Patient for Skin Turgor, Mucous Membranes, Dry Skin, Weakness, Headaches and Confusion; Provide Oral Fluids as Ordered; Initiate and Maintain Intravenous Fluids as Ordered; Monitor Intake and Output as Indicated Per Patient Status; Accurately Measure Blood Loss; Monitor Lab and Test Results as Obtained and Notify Provider of Abnormal Findings; Monitor Patient's Weight (Flower Segovia RN) Outcome: Patient will have Clear Lung Sounds (Flower Segovia RN) Status: Ongoing (Flower Segovia RN) Outcome: Patient will have Vital Signs within Expected Range (Flower Segovia RN) Status: Ongoing (Flower Segovia RN) Outcome: Urine Output will be within Expected Range (Flower Sgeovia RN) Status: Ongoing (Flower Segovia RN) Outcome: Patient will have Minimal Generalized or Upper Extremity Edema (Flower Segovia RN) Status: Ongoing (Flower Segovia RN) State: Risk For (Floewr Segovia RN) Related To: Labor and Delivery Process; Gestational Hypertension or Eclampsia; Anesthesia; Altered Coagulation; Risk to Status; Uteroplacental Perfusion; Decreased Mobility; Hemorrhage, Placenta Previa and or Placental Abruption; Uterine Rupture (Flower Segovia RN) Goal(s): Patient will Remain Free from Injury (Flower Segovia RN) Interventions: Monitoring as per Hospital Protocol; Assess Neurological Status; Perform Risk Assessment of Patients with Induction and ; Perform Fall Risk Assessment and Prevention per Hospital Protocol; Perform DVT Risk Assessment and Prophylaxis per Hospital Protocol; Ensure that Oxygen, Suction, and Resuscitation Medications and Equipment are Readily Available; Confirm Patient ID Prior to Procedure(s) and Medication Administration per Hospital Policy (Flower Segovia RN) Outcome: Successful Fall Risk Prevention (Flower Segovia RN) Status: Ongoing (Flower Segovia RN) Outcome: Patient will Deliver Infant without Adverse Sequela (Flower Segovia RN) Status: Ongoing (Flower Segovia RN) Outcome: Patient's Neurological Status will Remain Stable (Flower Segovia RN) Status: Ongoing (Flower Segovia RN) State: Risk For (Flower Segovia RN) Related To: Vaginal Delivery; Surgical Procedures; Prolonged Bedrest; Altered Tissue Integrity; Invasive Procedures (Flower Segovia RN) Goal(s): Patient will Maintain Optimal Skin Integrity, Free of Breakdown, Injury or Infection (Flower Segovia RN) Interventions: Complete Screening for Pressure Ulcer Risk and Initiate Protocol per Hospital Policy; Monitor Site of Skin Impairment for Color Changes, Redness, Swelling, Warmth, Pain or Other Signs of Infection; Encourage and Assist with Position Changes; Monitor Patient's Mobility Status; Provide Adequate Nutrition and Fluids; Teach Patient Appropriate Hygienic Care; Teach Patient/Family Skin Care Management (Flower Segovia RN) Outcome: Patient will not have Evidence of Injury Such as Skin Breakdown, Scrapes, Cuts, or Bruising (Flower Segovia RN) Status: Ongoing (Flower Segovia RN) Outcome: Patient will Report Any Altered Sensation or Pain at Site of Skin Impairment (Flower Segovia RN) Status: Ongoing (Flower Segovia RN) Outcome: Patients Incisions and Wounds will be without Signs or Symptoms of Infection (Flower Segovia RN) Status: Ongoing (Flower Segovia RN) Outcome: Patient will Demonstrate Understanding of Plan to Heal Skin and Prevent Reinjury and Verbalize Risk Factors (Flower Segovia RN) Status: Ongoing (Flower Segovia RN) State: Risk For (Flower Segovia RN) Related To: Labor and/or ; Compromised Health Status; Apprehension Related to Care; Multiple ; Adolescent Parent; Developmental Disability (Flower Segovia RN) Goal(s): Parents will Demonstrate Progressive Parenting Behaviors (Flower Segovia RN) Interventions: Assess for Adequacy of Support Systems; Observe and Encourage Patient/Family Attachment and Bonding Activities and Provide Feedback; Assess Patient/Family Understanding of 's Condition and Provide Accurate Information About Condition, Treatment and Prognosis; Assess for Patient/Family Behaviors that May Indicate Lack of Attachment; Provide a Safe Non-judgmental Environment for Patient/Family to Discuss Concerns; Promote Patient/Family Cohesiveness by Encouraging Discussion and Problem Solving; Enterprise Mobility Architect Referral as Indicated (Flower Segovia RN) Outcome: Patient/Family will Discuss Their Fears and the Possibility of Difficulties with Parenting (Flower Segovia RN) Status: Ongoing (Flower Segovia RN) Outcome: Patient/Family will Exhibit Appropriate Bonding Behaviors with Infant (Flower Segovia RN) Status: Ongoing (Flower Segovia RN) Outcome: Patient/Family will Verbalize Positive Feelings and Demonstrate Affection and Caring Toward (Flower Segovia RN) Status: Ongoing (Flower Segovia RN) State: Risk For (Flower Segovia RN) Related To: ; ; Surgical Procedure; Nausea or Vomiting; Prolonged Bedrest (Flower Segovia RN) Goal(s): Patient will have an Intake of Nutrients Sufficient to Meet Metabolic Needs (Flower Segovia RN) Interventions: Nutritional Screening and Assessment per Hospital Policy; Consult Website Admin for Further Assessment and Recommendations Regarding Food Preferences and Nutritional Support; Allow Patient to Plan and Order Diet when Possible; Monitor Laboratory Values That Indicate Nutritional Well-being; Consult First Assistant Manager for Nutritional Support Regarding Requirements; Document Actual Weight Initially and Weekly (Do Not Estimate); Encourage Patient Participation in Maintaining a Food Log as Indicated; Educate Patient on the Importance of Maintaining an Adequate Caloric Intake (Flower Segovia RN) Outcome: Patient will Receive Adequate Calories and Fluid Volume to Meet Metabolic Needs (Flower Segovia RN) Status: Ongoing (Flower Segovia RN) Outcome: Patient will Select Foods or Meals that Support Adequate Nutrition (Flower Segovia RN) Status: Ongoing (Flower Segovia RN)
[2016-07-28 07:14] LABS: HEMATOCRIT 22.7 % (36.0-47.0); HGB HCT DIFFERENCE -1.1; MEAN CORPUSCULAR HEMOGLOBIN 22.5 pg (27.0-33.4); MEAN CORPUSCULAR HGB CONC 31.6 g/dL (32.0-36.0); MEAN CORPUSCULAR VOLUME 71 fl (80-97); RED BLOOD COUNT 3.19 10^6/uL (3.72-5.28); RED CELL DISTRIBUTION WIDTH 16.6 % (11.5-14.0)
[2016-07-28 07:24] LABS: HEMOGLOBIN 7.2 g/dL (12.0-15.5)
[2016-07-28] MEDS: FERROUS SULFATE 325 MG TABLET PO SCH ×3 (10:02→17:07)
[2016-07-28] MEDS: ASCORBIC ACID 500 MG TABLET PO SCH ×3 (10:02→17:07)
[2016-07-28] MEDS: PRENATAL VITAMIN W-O CA NO5/FE FUMARATE/FA CAPSULE PO SCH (10:02)
[2016-07-28] MEDS: DOCUSATE SODIUM 100 MG CAPSULE PO SCH ×2 (10:02→17:07)
[2016-07-28] MEDS: SENNOSIDES/DOCUSATE 8.6-50 MG 1 EACH TABLET PO SCH (10:03)
--- NOTE | 2016-07-28 11:18 | PDOC PROGRESS REPORT ---
Subjective-OB Subjective: Post Delivery Day: 1 30 year old. Denies any needs at this time, lochia is stable, pain is well controlled, voiding without difficulty. Physical Exam (OB) Vital Signs: Temp Pulse Resp BP Pulse Ox 97.9 F 78 16 117/73 99 07/28/16 08:06 07/28/16 08:06 07/28/16 08:06 07/28/16 08:06 07/28/16 08:06 Intake & Output 07/27/16 07/28/16 07/29/16 06:59 06:59 06:59 Weight 79.25 kg - Lochia Lochia Amount: Small 10-25 ml Lochia Color: Rubra/Red - Abdomen Description: Soft, Round Hernia Present: No Fundal Description: Firm, Midline Fundal Height: u/u - u/2 Objective-Diagnostic Laboratory: 07/28/16 07:02 07/28/16 07:02 WBC 14.0 H RBC 3.19 L Hgb 7.2 L D Hct 22.7 L MCV 71 L MCH 22.5 L MCHC 31.6 L RDW 16.6 H Plt Count 230 Assessment and Plan(PN) - Assessment and Plan (1) Vaginal delivery Is this a current diagnosis for this admission?: YesPlan: routine pp care anticipate d/c home tomorrow (2) Acute blood loss anemia Is this a current diagnosis for this admission?: YesPlan: ferrous sulfate increase dietary iron - Time Spent with Patient Time with patient: Less than 15 minutes Critical Time spent with patient: Less than 15 minutes Medications reviewed and adjusted accordingly: Yes - Disposition Anticipated Discharge: Home Within: within 24 hours
[2016-07-29] MEDS: IBUPROFEN 800 MG TABLET PO SCH (05:21)
[2016-07-29] MEDS: PRENATAL VITAMIN W-O CA NO5/FE FUMARATE/FA CAPSULE PO SCH (09:32)
[2016-07-29] MEDS: ASCORBIC ACID 500 MG TABLET PO SCH (09:32)
[2016-07-29] MEDS: FERROUS SULFATE 325 MG TABLET PO SCH (09:32)
[2016-07-29] MEDS: SENNOSIDES/DOCUSATE 8.6-50 MG 1 EACH TABLET PO SCH (09:32)
[2016-07-29] MEDS: DOCUSATE SODIUM 100 MG CAPSULE PO SCH (09:33)
--- NOTE | 2016-07-29 10:04 | PDOC DISCHARGE SUMMARY ---
Final Diagnosis Discharge Date: 07/29/16 - Final Diagnosis (1) Vaginal delivery Is this a current diagnosis for this admission?: Yes (2) Acute blood loss anemia Is this a current diagnosis for this admission?: Yes Discharge Data - Discharge Medication Home Medications: Pnv95/Iron Fum/Folic Acid [ Caplet] 1 tab PO DAILY 05/01/16 Diphenhydramine HCl [Benadryl Allergy] 1 tab PO PRN PRN 07/23/16 Loratadine [Claritin 10 mg Tablet] 1 tab PO PRN PRN 07/23/16 Ascorbic Acid [Vitamin C 500 mg Tablet] 500 mg PO TID #90 tablet 07/29/16 Docusate Sodium [Colace 100 mg Capsule] 100 mg PO BID #60 capsule 07/29/16 Ferrous Sulfate [Feosol 325 mg Tablet] 325 mg PO TID #90 tablet 07/29/16 Ibuprofen [Motrin 800 mg Tablet] 800 mg PO Q8 #60 tablet 07/29/16 Gestational Age: 39+ Reason(s) for Admission: Onset of Labor Procedures: NST Intrapartum Procedure(s): Spontaneous Vaginal Delivery Complication(s): Laceration-Vaginal Laceration-Degree: 1st - Data Baby 1 Male at 1 minute: 9 at 5 minutes: 9 Weight: 3670 kg Home with Mother: Yes Complications: No - Diagnosis Test Laboratory: Temp Pulse Resp BP Pulse Ox 98.3 F 70 16 114/66 99 07/29/16 08:19 07/29/16 08:19 07/29/16 08:19 07/29/16 08:19 07/29/16 08:19 07/27/16 07/27/16 07/28/16 05:45 07:01 07:02 RBC 4.24 3.19 L Hgb 9.6 L 7.2 L D Hct 30.1 L 22.7 L Urine Opiates Screen NEGATIVE - Discharge information/Instructions Discharge Activity: Activity As Tolerated, Pelvic Rest, No tub bath Discharge Diet: Regular Disposition: HOME, SELF-CARE Follow up with: [facility] in: 4, Weeks
[2016-07-29 10:21] VITALS: BP 130/85
== END 2016-07-29 13:26 | disposition home or self-care (01) | DRG 774 ==
LOC: LC 05:32 → LR 06:54 → 2S 14:12
PROVIDERS: ADMIT Obstetrics & Gynecology; ATTEND Obstetrics & Gynecology
PROC: 10E0XZZ Delivery of Products of Conception, External Approach (ICD-10-PCS; principal; 2016-07-27)
PROC: 0HQ9XZZ Repair Perineum Skin, External Approach (ICD-10-PCS; 2016-07-27)
PROC: 4A1HXCZ Monitoring of Products of Conception, Cardiac Rate, External Approach (ICD-10-PCS; 2016-07-27)
DX: O70.0 First degree perineal laceration during delivery (principal); O98.32 Other infections with a predominantly sexual mode of transmission complicating childbirth; D62 Acute posthemorrhagic anemia; O99.02 Anemia complicating childbirth; Z90.49 Acquired absence of other specified parts of digestive tract; A63.0 Anogenital (venereal) warts; Z88.2 Allergy status to sulfonamides; Z3A.39 39 weeks gestation of pregnancy; Z37.0 Single live birth
CPT/HCPCS: 36415; 80307; 81005; 85025; 85027; 86592; 86850; 86900; 86901; J2590; J3490